=== PATIENT | male | born 1960 | race African-American/Black ===

== ENCOUNTER 2016-12-18 13:05 | Inpatient (IN) | payer OTHER ==
[2016-12-18 13:42] VITALS: BMI 30.5
--- NOTE | 2016-12-18 17:22 | HP ---
COWS - Scale Resting Pulse: 1= [place] 81-100 Sweatin=Flushed/Facial Moisture Restless Observation: 1= Difficult to Sit Still Pupil Size: 1= Pupils >than Normal Bone or Joint Aches: 2= Severe Diffuse Aches Runny Nose/ Eye Tearin= Nasal Congestion GI Upset > 30mins: 2= Nausea/Diarrhea Tremor Observation: 2= Slight Tremor Visible Yawning Observation: 4= Several Times/Minute Anxiety or Irritability: 2=Irritable/Anxious Goose Flesh Skin: 3=Piloerection COWS Score: 21 CIWA Score - CIWA Score Nausea/Vomitin Muscle Tremors: 3 Anxiety: 2 Agitation: 2 Paroxysmal Sweats: 3 Orientation: 0-Oriented Tacttile Disturbances: 1-Very Mild Itch/Numbness Auditory Disturbances: 0-None Visual Disturbances: 1-Very Mild Sensitivity Headache: 2-Mild CIWA-Ar Total Score: 16 [facility] - HPI Chief Complaint: I need he;p to stop doing heroin and alcohol Allergies/Adverse Reactions: Allergies Allergy/AdvReac Type Severity Reaction Status Date / Time No Known Allergies Allergy Verified 11/17/15 22:55 History of Present Illness: 56 y/o man with longstanding h/o alcohol and heroin dependence presents for detox Exam Limitations: No Limitations - Ebola screening Have you traveled outside of the country in the last 21 days: No Have you had contact with anyone from an Ebola affected area: No Have you been sick,other than usual withdrawal symptoms: No Do you have a fever: No - Review of Systems Constitutional: Chills, Loss of Appetite EENT: reports: Nose Congestion Respiratory: reports: Cough Cardiac: reports: No Symptoms Reported GI: reports: Nausea, Poor Appetite, Poor Fluid Intake, Abdominal cramping : reports: No Symptoms Reported Musculoskeletal: reports: Back Pain, Muscle Pain Integumentary: reports: No Symptoms Reported Neuro: reports: Headache, Numbness Endocrine: reports: No Symptoms Reported Hematology: reports: No Symptoms Reported Psychiatric: reports: Anxious, Depressed Other Systems: Reviewed and Negative Patient History - Patient Medical History Hx Anemia: No Hx Asthma: No Hx Chronic Obstructive Pulmonary Disease (COPD): No Hx Cancer: No Hx Cardiac Disorders: No Hx Congestive Heart Failure: No Hx Hypertension: No Hx Hypercholesterolemia: No Hx Pacemaker: No HX Cerebrovascular Accident: No Hx Seizures: No Hx Dementia: No Hx Diabetes: Yes Hx Gastrointestinal Disorders: No Hx Liver Disease: No Hx Genitourinary Disorders: No Hx Sexually Transmitted Disorders: No Hx Renal Disease (ESRD): No Hx Thyroid Disease: No Hx Human Immunodeficiency Virus (HIV): No Hx Hepatitis C: No Hx Depression: Yes Hx Suicide Attempt: No (remote hx) Hx Bipolar Disorder: No Hx Schizophrenia: Yes - Patient Surgical History Past Surgical History: Yes Hx Neurologic Surgery: No Hx Cataract Extraction: No Hx Cardiac Surgery: No Hx Lung Surgery: No Hx Breast Surgery: No Hx Breast Biopsy: No Hx Abdominal Surgery: Yes (hernia repair ) Hx Appendectomy: No Hx Cholecystectomy: No Hx Genitourinary Surgery: No Hx Section: No Hx Orthopedic Surgery: No Anesthesia Reaction: No - PPD History Previous Implant?: Yes Documented Results: Negative w/proof Implanted On Prior R Admission?: Yes Date: 11/20/15 PPD to be Administered?: Yes - Smoking Cessation Smoking history: Current every day smoker Have you smoked in the past 12 months: Yes Aproximately how many cigarettes per day: 40 Hx Chewing Tobacco Use: No 'Breaking Loose' booklet given: 12/18/16 - Substance & Tx. History Hx Alcohol Use: Yes (rum, beer) Hx Substance Use: Yes Substance Use Type: Alcohol - Substances Abused Alcohol Route: Oral Frequency: Daily Amount used: 2 pints Age of first use: 3 Date of Last Use: 12/18/16 Heroin Route: Inhalation Frequency: Daily Amount used: 2 bundles Age of first use: 20 Date of Last Use: 12/18/16 Family Disease History - Family Disease History Family Disease History: Diabetes: Mother (ovarian), CA: Mother Admission Physical Exam S - Vital Signs Vital Signs: Vital Signs - 24 hr 12/18/16 13:38 Temperature 96.2 F L Pulse Rate 97 H Respiratory 20 Rate Blood Pressure 109/56 - Physical General Appearance: Yes: Tremorous, Sweating, Anxious HEENTM: Yes: Normal Voice, NATASHA, Nasal Congestion, Rhinorrhea Respiratory: Yes: Chest Non-Tender, Lungs Clear, No Respiratory Distress, No Accessory Muscle Use, Other Neck: Yes: No masses,lesions,Nodules, Supple Breast: Yes: Breast Exam Deferred Cardiology: Yes: Regular Rhythm, Regular Rate, S1, S2 Abdominal: Yes: Within Normal Limits Genitourinary: Yes: Within Normal Limits Back: Yes: Normal Inspection Musculoskeletal: Yes: Back pain, Muscle Pain Extremities: Yes: Non-Tender, Tremors Neurological: Yes: police cadet II-XII NML intact, Alert, Normal Response Integumentary: Yes: Clammy Lymphatic: Yes: Within Normal Limits - Diagnostic (1) Alcohol dependence with uncomplicated withdrawal Current Visit: Yes Status: Acute (2) Nicotine dependence Current Visit: Yes Status: Acute Qualifiers: Nicotine product type: cigarettes Substance use status: uncomplicated Qualified Code(s): F17.210 - Nicotine dependence, cigarettes, uncomplicated (3) Opioid dependence Current Visit: Yes Status: Acute (4) Diabetes 1.5, managed as type 2 Current Visit: Yes Status: Chronic Cleared for Admission [facility] - Detox or Rehab [facility] Level of Care: Medically Managed Detox Regimen/Protocol: Methadone/Librium [facility] Breath Alcohol Content Breath Alcohol Content: 0.131 Urine Drug Screen - Results Drug Screen Negative: No Urine Drug Screen Results: OPI-Opiates, BZO-Benzodiazepines
[2016-12-18] MEDS ORDERED: MENTHOL/PHENOL 1 EACH UD MM PRN (17:29)
[2016-12-18] MEDS ORDERED: MAGNESIUM HYDROX 2400MG/30ML ORAL SUSPENSION 30 ML CUP PO PRN (17:29)
[2016-12-18] MEDS ORDERED: LOPERAMIDE HCL 2 MG CAPSULE PO PRN (17:29)
[2016-12-18] MEDS ORDERED: P-EPHED 60MG/TRIPROLIDI 2.5MG TABLET PO PRN (17:29)
[2016-12-18] MEDS ORDERED: guaiFENesin/D-METHORPHAN HB 10 ML UNIT-DOSE CUPS PO PRN (17:29)
[2016-12-18] MEDS ORDERED: METHADONE HCL 10 MG TABLET (FOR DETOX USE ONLY) PO ONE ×2 (17:29→23:00)
[2016-12-18] MEDS ORDERED: chlordiazePOXIDE HCL 25 MG CAPSULE PO ONE (17:29)
[2016-12-18] MEDS ORDERED: NICOTINE POLACRILEX 2 MG GUM BUC PRN (17:29)
[2016-12-18] MEDS ORDERED: MAGNESIUM CITRATE 300 ML BOTTLE PO PRN (17:29)
[2016-12-18] MEDS ORDERED: METHADONE HCL 10 MG TABLET (FOR DETOX USE ONLY) ONE (19:40)
[2016-12-18] MEDS: NICOTINE 21 MG/24 HOURS TOPICAL PATCH TD SCH (19:45)
[2016-12-18] MEDS: chlordiazePOXIDE HCL 25 MG CAPSULE PO PRN (19:45)
[2016-12-18] MEDS: diphenhydrAMINE HCL 50 MG CAPSULE PO PRN (22:24)
[2016-12-18] MEDS: THIAMINE HCL 100 MG TABLET (FP) PO SCH (22:24)
[2016-12-18] MEDS: chlordiazePOXIDE HCL 25 MG CAPSULE PO SCH (22:24)
[2016-12-18] MEDS: IBUPROFEN 400 MG TABLET (FP) PO PRN (22:27)
[2016-12-19] MEDS: chlordiazePOXIDE HCL 25 MG CAPSULE PO SCH ×4 (05:59→22:34)
[2016-12-19] MEDS: IBUPROFEN 400 MG TABLET (FP) PO PRN ×2 (06:05→17:05)
--- NOTE | 2016-12-19 09:36 | PN ---
[facility] CIWA - CIWA Score Nausea/Vomitin-Mild Nausea/No Vomiting Muscle Tremors: 4-Moderate,w/Arms Extend Anxiety: 4-Mod. Anxious/Guarded Agitation: 4-Moderately Restless Paroxysmal Sweats: 3 Orientation: 0-Oriented Tacttile Disturbances: 2-Mild Itch/Numbness/Burn Auditory Disturbances: 0-None Visual Disturbances: 0-None Headache: 0-None Present CIWA-Ar Total Score: 18 [facility] COWS - Scale Resting Pulse: 0= [place] 80 or Below Sweatin=Flushed/Facial Moisture Restless Observation: 1= Difficult to Sit Still Pupil Size: 0= Normal to Room Light Bone or Joint Aches: 2= Severe Diffuse Aches Runny Nose/ Eye Tearin= Runny Nose/Eyes GI Upset > 30mins: 2= Nausea/Diarrhea Tremor Observation of Outstretched Hands: 2= Slight Tremor Visible Yawning Observation: 1= 1-2x During Session Anxiety or Irritability: 2=Irritable/Anxious Goose Flesh Skin: 0=Smooth Skin COWS Score: 14 [facility] Progress Note (SOAP) Subjective: Anxiety,sweating,tremors,severe back pain,legs/joints pain,interrupted sleep. Objective: 12/19/16 09:35 Vital Signs - 8 hr 12/19/16 12/19/16 03:58 06:00 Temperature 97.7 F Pulse Rate 78 Respiratory 18 20 Rate Blood Pressure 101/57 Assessment: 12/19/16 09:35 Withdrawal sx. Plan: Continue detox
[2016-12-19] MEDS ORDERED: METHADONE HCL 10 MG TABLET (FOR DETOX USE ONLY) PO SCH (10:00)
[2016-12-19] MEDS: PRENATAL VITAMINS W/ FOLIC ACID TABLET (FP) PO SCH (10:12)
[2016-12-19] MEDS: NICOTINE 21 MG/24 HOURS TOPICAL PATCH TD SCH (10:13)
[2016-12-19 11:01] LABS: URINE APPEARANCE SLCLOUDY; URINE BILIRUBIN NEGATIVE (NEGATIVE); URINE BLOOD NEGATIVE (NEGATIVE); URINE COLOR LTYELLOW; URINE GLUCOSE (UA) NEGATIVE (NEGATIVE); URINE KETONE NEGATIVE (NEGATIVE); URINE LEUK ESTERASE NEGATIVE (NEGATIVE); URINE NITRITE NEGATIVE (NEGATIVE); URINE UROBILINOGEN NEGATIVE E.U./dl (0.2-1.0)
[2016-12-19 11:02] LABS: URINE PROTEIN 1+ (NEGATIVE)
[2016-12-19 11:07] LABS: URIC ACID CRYSTALS RARE /hpf (NONE SEEN); URINE HYALINE CAST 4 /lpf; URINE MUCUS RARE; URINE RBC <1 /hpf (0-3); URINE WBC 1 /hpf (3-5)
[2016-12-19 11:07] LABS: MCH 35.1 pg (25.7-33.7); MCHC 33.7 g/dl (32.0-35.9); MEAN CELL VOLUME 104.4 fl (80-96); MEAN PLT VOLUME 9.9 fl (7.5-11.1); PLATELET COUNT 142 K/MM3 (134-434); RDW 16.3 % (11.9-15.9); WHITE BLOOD COUNT 6.2 K/mm3 (4.0-10.0)
[2016-12-19 11:12] LABS: ALBUMIN 3.5 g/dl (3.4-5.0); ANION GAP 7 (8-16); CALCIUM 8.1 mg/dL (8.5-10.1); CO2 26 mmol/L (21-32); GLUCOSE,RANDOM 118 mg/dL (74-106)
[2016-12-19 11:15] LABS: ALK PHOS 104 U/L (45-117); COCKROFT - GAULT 106.93; SGOT/AST 15 U/L (15-37); SGPT/ALT 20 U/L (12-78); TOT PROT 7.5 g/dl (6.4-8.2)
[2016-12-19] MEDS ORDERED: IBUPROFEN 400 MG TABLET (FP) PO ONE (11:30)
[2016-12-19] MEDS ORDERED: CYCLOBENZAPRINE HCL 10 MG TABLET (FP) PO ONE (11:30)
[2016-12-19] MEDS: hydrOXYzine PAMOATE 50 MG CAPSULE (FP) PO PRN (11:52)
[2016-12-19] MEDS: TRIMETHOBENZAMIDE HCL 200MG/2ML INJ IM PRN ×2 (11:52→17:37)
[2016-12-19] MEDS: chlordiazePOXIDE HCL 25 MG CAPSULE PO PRN ×2 (13:12→19:52)
[2016-12-19] MEDS: CYCLOBENZAPRINE HCL 10 MG TABLET (FP) PO SCH ×2 (13:12→22:34)
[2016-12-19] MEDS: LIDOCAINE 5% TOPICAL PATCH TP SCH (15:03)
[2016-12-19] MEDS: ACETAMINOPHEN 325 MG TABLET (FP) PO PRN (18:56)
[2016-12-19] MEDS: MAG HYDROX/AL HYDROX/SIMETH 30 ML UNIT-DOSE CUP PO PRN (19:51)
[2016-12-19] MEDS: diphenhydrAMINE HCL 50 MG CAPSULE PO PRN (22:34)
[2016-12-19] MEDS: THIAMINE HCL 100 MG TABLET (FP) PO SCH (22:35)
[2016-12-20] MEDS: diphenhydrAMINE HCL 50 MG CAPSULE PO PRN (00:23)
[2016-12-20] MEDS: chlordiazePOXIDE HCL 25 MG CAPSULE PO PRN (01:41)
[2016-12-20] MEDS: IBUPROFEN 400 MG TABLET (FP) PO PRN ×2 (01:41→22:43)
[2016-12-20] MEDS: MAG HYDROX/AL HYDROX/SIMETH 30 ML UNIT-DOSE CUP PO PRN (04:14)
[2016-12-20] MEDS: TRIMETHOBENZAMIDE HCL 200MG/2ML INJ IM PRN (04:15)
[2016-12-20] MEDS: CYCLOBENZAPRINE HCL 10 MG TABLET (FP) PO SCH ×3 (06:04→22:43)
[2016-12-20] MEDS: chlordiazePOXIDE HCL 25 MG CAPSULE PO SCH ×3 (06:05→17:45)
--- NOTE | 2016-12-20 10:04 | CONSULT ---
[facility] Psychiatric Consult - Data Date of interview: 12/20/16 Admission source: [facility] Identifying data: This is 56 years old male with Schizophrenia, with history of [id number] hospitalizations intoxicated with: Alcohol, Opioids, Nicotine Substance Abuse History: Smoking history: Current every day smoker. Have you smoked in the past 12 months: Yes. Aproximately how many cigarettes per day: 40. Hx Chewing Tobacco Use: No. 'Breaking Loose' booklet given: 12/18/16. - Substance & Tx. History. Hx Alcohol Use: Yes (rum, beer). Hx Substance Use: Yes. Substance Use Type: Alcohol. - Substances Abused. Alcohol. Route: Oral. Frequency: Daily. Amount used: 2 pints. Age of first use: 3. Date of Last Use: 12/18/16. Heroin. Route: Inhalation. Frequency: Daily. Amount used: 2 bundles. Age of first use: 20. Date of Last Use: 12/18/16 Medical History: DM-2 Psychiatric History: Patient is poor historyanm sedated at is time, reports history of schizophrenia, reports most recent [facility] on few years ago at [facility]. Patient reports taking prior to admission: Trilafon 4mg po bid. Seroquel 200mg po bid. TRILAFON 4MG PO BID. SEROQUEL 100MG PO BID Physical/Sexual Abuse/Trauma History: Denies Additional Comment: TRILAFON 4MG PO BID. SEROQUEL 100MG PO BID. Cogentin 1mg poqd Mental Status Exam - Mental Status Exam Alert and Oriented to: Person Cognitive Function: Fair Patient Appearance: Unkempt Mood: Sad Affect: Flat Patient Behavior: Sedated Speech Pattern: Delayed, Slurred Voice Loudness: Mildly Soft/Quiet Thought Process: Circumstantial, Tangential Thought Disorder: Being Controlled Hallucinations: Denies Suicidal Ideation: Denies Homicidal Ideation: Denies Insight/Judgement: Fair Sleep: Difficulty falling asleep Appetite: Weight gain Muscle strength/Tone: Mild Hypotonicity Gait/Station: Shuffling Additional Comments: TRILAFON 4MG PO BID. SEROQUEL 100MG PO BID. Cogentin 1mg poqd Psychiatric Findings - Problem List ([place] 1, 2,3) (1) Alcohol dependence with uncomplicated withdrawal Current Visit: Yes Status: Acute (2) Nicotine dependence Current Visit: Yes Status: Acute Qualifiers: Nicotine product type: cigarettes Substance use status: uncomplicated Qualified Code(s): F17.210 - Nicotine dependence, cigarettes, uncomplicated (3) Opioid dependence Current Visit: Yes Status: Acute (4) Alcohol dependence Current Visit: No Status: Active (5) Paranoid schizophrenia Current Visit: No Status: Chronic - Initial Treatment Plan Initial Treatment Plan: TRILAFON 4MG PO BID. SEROQUEL 100MG PO BID. Cogentin 1mg poqd
[2016-12-20] MEDS: PERPHENAZINE 4 MG TABLET PO SCH ×2 (10:25→22:43)
[2016-12-20] MEDS: PRENATAL VITAMINS W/ FOLIC ACID TABLET (FP) PO SCH (10:25)
[2016-12-20] MEDS: METHADONE HCL 5 MG TABLET (FOR DETOX USE ONLY) PO SCH (10:25)
[2016-12-20] MEDS: METHYL SALICYLATE/MENTHOL OINT 30 GM TUBE TP SCH ×2 (10:26→22:42)
[2016-12-20] MEDS: NICOTINE 21 MG/24 HOURS TOPICAL PATCH TD SCH (10:26)
[2016-12-20] MEDS: LIDOCAINE 5% TOPICAL PATCH TP SCH (10:27)
--- NOTE | 2016-12-20 10:42 | PN ---
[facility] CIWA - CIWA Score Nausea/Vomitin-No Nausea/No Vomiting Muscle Tremors: 4-Moderate,w/Arms Extend Anxiety: 4-Mod. Anxious/Guarded Agitation: 4-Moderately Restless Paroxysmal Sweats: 3 Orientation: 0-Oriented Tacttile Disturbances: 0-None Auditory Disturbances: 0-None Visual Disturbances: 0-None Headache: 0-None Present CIWA-Ar Total Score: 15 S COWS - Scale Resting Pulse: 2= [place] 101-120 Sweatin=Flushed/Facial Moisture Restless Observation: 0= Sits Still Pupil Size: 0= Normal to Room Light Bone or Joint Aches: 4=Acute Joint/Muscle Pain Runny Nose/ Eye Tearin= None GI Upset > 30mins: 0= None Tremor Observation of Outstretched Hands: 2= Slight Tremor Visible Yawning Observation: 0= None Anxiety or Irritability: 2=Irritable/Anxious Goose Flesh Skin: 0=Smooth Skin COWS Score: 12 S Progress Note (SOAP) Subjective: body aches sweats irritable mild shakes interrupted sleep agitation Objective: 12/20/16 10:41 Vital Signs Temperature 97.7 F 12/20/16 09:23 Pulse Rate 82 12/20/16 09:23 Respiratory Rate 16 12/20/16 09:23 Blood Pressure 151/98 12/20/16 09:23 O2 Sat by Pulse Oximetry (%) Laboratory Tests 12/19/16 12/19/16 12/19/16 07:00 07:00 07:00 WBC RBC Hgb Hct MCV MCHC RDW Plt Count MPV Sodium 138 Potassium 4.4 Chloride 105 Carbon Dioxide 26 Anion Gap 7 L BUN 14 D Creatinine 1.0 D Creat Clearance w eGFR > 60 POC Glucometer Random Glucose 118 H Calcium 8.1 L Total Bilirubin 1.0 D AST 15 ALT 20 D Alkaline Phosphatase 104 Total Protein 7.5 Albumin 3.5 Urine Color Ltyellow Urine Appearance Slcloudy Urine pH 5.0 Ur Specific [place] 1.012 Urine Protein 1+ H Urine Glucose (UA) Negative Urine Ketones Negative Urine Blood Negative Urine Nitrite Negative Urine Bilirubin Negative Urine Urobilinogen Negative Ur Leukocyte Esterase Negative Urine RBC <1 Urine WBC 1 Ur Epithelial Cells Rare Uric Acid Crystals Rare Hyaline Casts 4 Urine Mucus Rare RPR Titer Nonreactive 12/19/16 12/20/16 07:19 06:03 WBC 6.2 RBC 4.25 Hgb 14.9 D Hct 44.3 D MCV 104.4 H MCHC 33.7 RDW 16.3 H Plt Count 142 MPV 9.9 Sodium Potassium Chloride Carbon Dioxide Anion Gap BUN Creatinine Creat Clearance w eGFR POC Glucometer 147 Random Glucose Calcium Total Bilirubin AST ALT Alkaline Phosphatase Total Protein Albumin Urine Color Urine Appearance Urine pH Ur Specific [place] Urine Protein Urine Glucose (UA) Urine Ketones Urine Blood Urine Nitrite Urine Bilirubin Urine Urobilinogen Ur Leukocyte Esterase Urine RBC Urine WBC Ur Epithelial Cells Uric Acid Crystals Hyaline Casts Urine Mucus RPR Titer awake/alert lying in bed no acute distress Assessment: 12/20/16 10:41 withdrawal sx Plan: continue detox increase fluids lidocaine patch analgesic balm continue motrin as ordered
[2016-12-20] MEDS: BENZTROPINE MESYLATE 1 MG TABLET (FP) PO SCH (17:44)
[2016-12-20] MEDS ORDERED: QUEtiapine FUMARATE 100 MG TABLET (FP) PO SCH (22:00)
[2016-12-20] MEDS: THIAMINE HCL 100 MG TABLET (FP) PO SCH (22:42)
[2016-12-20] MEDS: QUEtiapine FUMARATE 100 MG TABLET (FP) PO SCH (22:43)
[2016-12-20] MEDS: chlordiazePOXIDE 5 MG CAPSULE PO SCH (22:43)
[2016-12-21] MEDS: chlordiazePOXIDE 5 MG CAPSULE PO SCH ×3 (05:13→17:55)
[2016-12-21] MEDS: CYCLOBENZAPRINE HCL 10 MG TABLET (FP) PO SCH ×4 (05:13→23:43)
[2016-12-21] MEDS: ACETAMINOPHEN 325 MG TABLET (FP) PO PRN (05:14)
[2016-12-21] MEDS: TRIMETHOBENZAMIDE HCL 200MG/2ML INJ IM PRN (09:08)
--- NOTE | 2016-12-21 09:17 | PN ---
[facility] CIWA - CIWA Score Nausea/Vomitin-Int. Nausea w/Dry Heave Muscle Tremors: 2 Anxiety: 2 Agitation: 2 Paroxysmal Sweats: 3 Orientation: 0-Oriented Tacttile Disturbances: 2-Mild Itch/Numbness/Burn Auditory Disturbances: 0-None Visual Disturbances: 0-None Headache: 0-None Present CIWA-Ar Total Score: 15 S COWS - Scale Resting Pulse: 2= [place] 101-120 Sweatin= Chills/Flushing Restless Observation: 1= Difficult to Sit Still Pupil Size: 1= Pupils >than Normal Bone or Joint Aches: 2= Severe Diffuse Aches Runny Nose/ Eye Tearin= Nasal Congestion GI Upset > 30mins: 1= Stomach Cramp Tremor Observation of Outstretched Hands: 1= Tremor [place], Not Seen Yawning Observation: 0= None Anxiety or Irritability: 1=Feels Anxious/Irritable Goose Flesh Skin: 0=Smooth Skin COWS Score: 11 [facility] Progress Note (SOAP) Subjective: interrupted sleep, sweats, nausea ,lbp Objective: 12/21/16 09:15 Vital Signs Temperature 96.6 F L 12/21/16 07:01 Pulse Rate 106 H 12/21/16 07:01 Respiratory Rate 20 12/21/16 07:01 Blood Pressure 133/83 12/21/16 07:01 O2 Sat by Pulse Oximetry (%) Laboratory Tests 12/19/16 12/19/16 12/19/16 07:00 07:00 07:00 WBC RBC Hgb Hct MCV MCHC RDW Plt Count MPV Sodium 138 Potassium 4.4 Chloride 105 Carbon Dioxide 26 Anion Gap 7 L BUN 14 D Creatinine 1.0 D Creat Clearance w eGFR > 60 POC Glucometer Random Glucose 118 H Calcium 8.1 L Total Bilirubin 1.0 D AST 15 ALT 20 D Alkaline Phosphatase 104 Total Protein 7.5 Albumin 3.5 Urine Color Ltyellow Urine Appearance Slcloudy Urine pH 5.0 Ur Specific [place] 1.012 Urine Protein 1+ H Urine Glucose (UA) Negative Urine Ketones Negative Urine Blood Negative Urine Nitrite Negative Urine Bilirubin Negative Urine Urobilinogen Negative Ur Leukocyte Esterase Negative Urine RBC <1 Urine WBC 1 Ur Epithelial Cells Rare Uric Acid Crystals Rare Hyaline Casts 4 Urine Mucus Rare RPR Titer Nonreactive 12/19/16 12/20/16 07:19 06:03 WBC 6.2 RBC 4.25 Hgb 14.9 D Hct 44.3 D MCV 104.4 H MCHC 33.7 RDW 16.3 H Plt Count 142 MPV 9.9 Sodium Potassium Chloride Carbon Dioxide Anion Gap BUN Creatinine Creat Clearance w eGFR POC Glucometer 147 Random Glucose Calcium Total Bilirubin AST ALT Alkaline Phosphatase Total Protein Albumin Urine Color Urine Appearance Urine pH Ur Specific [place] Urine Protein Urine Glucose (UA) Urine Ketones Urine Blood Urine Nitrite Urine Bilirubin Urine Urobilinogen Ur Leukocyte Esterase Urine RBC Urine WBC Ur Epithelial Cells Uric Acid Crystals Hyaline Casts Urine Mucus RPR Titer pt aox3 in nad ambulating Assessment: 12/21/16 09:16 withdrawal sx's nausea Plan: cont. detox increase fluids tigan im clonidine 0.1mg bid
[2016-12-21] MEDS: LIDOCAINE 5% TOPICAL PATCH TP SCH (10:10)
[2016-12-21] MEDS: METHADONE HCL 5 MG TABLET (FOR DETOX USE ONLY) PO SCH (10:32)
[2016-12-21] MEDS: PRENATAL VITAMINS W/ FOLIC ACID TABLET (FP) PO SCH (10:32)
[2016-12-21] MEDS: NICOTINE 21 MG/24 HOURS TOPICAL PATCH TD SCH (10:33)
[2016-12-21] MEDS: QUEtiapine FUMARATE 100 MG TABLET (FP) PO SCH ×2 (10:33→23:43)
[2016-12-21] MEDS: BENZTROPINE MESYLATE 1 MG TABLET (FP) PO SCH (10:33)
[2016-12-21] MEDS: cloNIDine HCL 0.1 MG TABLET PO SCH ×2 (10:33→23:43)
[2016-12-21] MEDS: PERPHENAZINE 4 MG TABLET PO SCH ×2 (10:33→23:44)
[2016-12-21] MEDS: IBUPROFEN 400 MG TABLET (FP) PO PRN (10:34)
[2016-12-21] MEDS: METHYL SALICYLATE/MENTHOL OINT 30 GM TUBE TP SCH ×2 (10:38→23:42)
--- NOTE | 2016-12-21 21:58 | PN ---
[facility] Progress Note Note: patient trip his own cane, fell on floor, hit head on ground observed patient sitting on edge of bed, vital signs in progress anxiousness, breath heavily, alert, PERRLA EOMI, cervical spine full range of motion, denies pain, able to standing up and sitting independently
[2016-12-21] MEDS: chlordiazePOXIDE HCL 10 MG CAPSULE PO SCH (23:43)
[2016-12-21] MEDS: THIAMINE HCL 100 MG TABLET (FP) PO SCH (23:44)
[2016-12-22] MEDS: hydrOXYzine PAMOATE 50 MG CAPSULE (FP) PO PRN (01:39)
[2016-12-22] MEDS: IBUPROFEN 400 MG TABLET (FP) PO PRN (01:40)
[2016-12-22] MEDS: MAG HYDROX/AL HYDROX/SIMETH 30 ML UNIT-DOSE CUP PO PRN (01:41)
[2016-12-22 03:44] VITALS: BP 99/73; PULSE 113; TEMP 97.9
--- NOTE | 2016-12-22 04:09 | PN ---
[facility] Progress Note Note: PT.FELL FOR THE SECOND TIME IN 6 HOURS. HE STATED HE GOT UP FROM HIS BED USING HIS CANE. HE LOST HIS BALANCE AND HIT HIS HEAD AGAINST THE GARBAGE; FALL WAS UNWITNESSED. HE ALSO STATED HE BLACKED OUT PRIOR TO FALLING. HE WAS ASSESSED WHILE ANXIOUSLY SITTING IN BED. HE DENIES PAIN, ALERT TO TO SELF AND LOCATION. CLIENT REFERRED TO ER FOR FURTHER EVALUATION. REPORT GIVEN JASMEET BACA. VS AT 3:43AM: BP: 99/73, P: 113, R: 18, T:97.9
[2016-12-22] MEDS: CYCLOBENZAPRINE HCL 10 MG TABLET (FP) PO SCH (05:06)
[2016-12-22] MEDS: chlordiazePOXIDE HCL 10 MG CAPSULE PO SCH (05:06)
--- NOTE | 2016-12-22 08:29 | EKG ---
Test Reason : Blood Pressure : / mmHG Vent. Rate : 081 BPM Atrial Rate : 081 BPM P-R Int : 164 ms QRS Dur : 092 ms QT Int : 366 ms P-R-T Axes : 054 043 047 degrees QTc Int : 425 ms NORMAL SINUS RHYTHM MINIMAL VOLTAGE CRITERIA FOR LVH, MAY BE NORMAL VARIANT BORDERLINE ECG NO PREVIOUS ECGS AVAILABLE Confirmed by DEVANG ANDERSON MD ([id number]) on 12/22/2016 8:29:02 AM Referred By: Confirmed By:DEVANG ANDERSON MD
[2016-12-22] MEDS ORDERED: METHADONE HCL 10 MG TABLET (FOR DETOX USE ONLY) PO SCH (10:00)
--- NOTE | 2016-12-22 10:14 | DS ---
[facility] Detox Discharge Summary Admission Date: 12/18/16 Discharge Date: 12/22/16 - History Present History: Alcohol Dependence, Opioid Dependence - Physical Exam Results Vital Signs: Vital Signs Temperature 97.9 F 12/22/16 04:34 Pulse Rate 113 H 12/22/16 04:34 Respiratory Rate 18 12/22/16 04:34 Blood Pressure 99/73 12/22/16 04:34 O2 Sat by Pulse Oximetry (%) - Treatment Hospital Course: Detox Protocol Followed, Detoxed Safely Patient has Accepted a Rehab Referral to: pt transfered to ED for further eval. - Medication Discharge Medications: Ambulatory Orders Benztropine Mesylate [Cogentin -] 1 mg PO DAILY #30 tablet 12/20/16 Perphenazine [Trilafon -] 4 mg PO BID #60 tablet 12/20/16 Quetiapine Fumarate [Seroquel] 100 mg PO BID #60 tablet 12/20/16 - Diagnosis (1) Alcohol dependence with uncomplicated withdrawal Current Visit: Yes Status: Chronic (2) Nicotine dependence Current Visit: Yes Status: Chronic Qualifiers: Nicotine product type: cigarettes Substance use status: uncomplicated Qualified Code(s): F17.210 - Nicotine dependence, cigarettes, uncomplicated (3) Opioid dependence Current Visit: Yes Status: Chronic (4) Diabetes 1.5, managed as type 2 Current Visit: Yes Status: Chronic (5) Acute renal failure (ARF) Current Visit: Yes Status: Acute Qualifiers: Acute renal failure type: unspecified Qualified Code(s): N17.9 - Acute kidney failure, unspecified - AMA Did Patient Leave Against Medical Advice: No (pt admitted to [facility] /surg )
[2016-12-22] MEDS ORDERED: SODIUM CHLORIDE 1,000 ML IV SCH (10:15)
--- NOTE | 2016-12-22 10:24 | HP ---
CHIEF COMPLAINT: PCP: HISTORY OF PRESENT ILLNESS: ER course was notable for: (1) (2) (3) Recent Travel: PAST MEDICAL HISTORY: PAST SURGICAL HISTORY: Social History: Smoking: Alcohol: Drugs: Family History: Allergies No Known Allergies Allergy (Verified 12/22/16 05:16) HOME MEDICATIONS: Home Medications Medication Instructions Recorded Benztropine Mesylate [Cogentin -] 1 mg PO DAILY #30 tablet 12/20/16 Perphenazine [Trilafon -] 4 mg PO BID #60 tablet 12/20/16 Quetiapine Fumarate [Seroquel] 100 mg PO BID #60 tablet 12/20/16 REVIEW OF SYSTEMS CONSTITUTIONAL: Absent: fever, chills, diaphoresis, generalized weakness, malaise, loss of appetite, weight change HEENT: Absent: rhinorrhea, nasal congestion, throat pain, throat swelling, difficulty swallowing, mouth swelling, ear pain, eye pain, visual changes CARDIOVASCULAR: Absent: chest pain, syncope, palpitations, irregular heart rate, lightheadedness , peripheral edema RESPIRATORY: Absent: cough, shortness of breath, dyspnea with exertion, orthopnea, wheezing, stridor, hemoptysis GASTROINTESTINAL: Absent: abdominal pain, abdominal distension, nausea, vomiting, diarrhea, constipation, melena, hematochezia GENITOURINARY: Absent: dysuria, frequency, urgency, hesitancy, hematuria, flank pain, genital pain MUSCULOSKELETAL: Absent: myalgia, arthralgia, joint swelling, back pain, neck pain SKIN: Absent: rash, itching, pallor HEMATOLOGIC/IMMUNOLOGIC: Absent: easy bleeding, easy bruising, lymphadenopathy, frequent infections ENDOCRINE: Absent: unexplained weight gain, unexplained weight loss, heat intolerance, cold intolerance NEUROLOGIC: Absent: headache, focal weakness or paresthesias, dizziness, unsteady gait, seizure, mental status changes, bladder or bowel incontinence PSYCHIATRIC: Absent: anxiety, depression, suicidal or homicidal ideation, hallucinations. PHYSICAL EXAMINATION Vital Signs - 24 hr 12/21/16 12/21/16 12/21/16 13:28 19:42 21:45 Temperature 98.2 F 97 F L 96.8 F L Pulse Rate 104 H 110 H 145 H Respiratory 20 20 20 Rate Blood Pressure 121/86 97/58 157/78 12/21/16 12/22/16 12/22/16 22:00 00:30 01:45 Temperature 96.3 F L 96.4 F L Pulse Rate 138 H 124 H Respiratory 22 18 20 Rate Blood Pressure 131/64 112/65 12/22/16 12/22/16 03:43 04:34 Temperature 97.9 F 97.9 F Pulse Rate 113 H 113 H Respiratory 18 18 Rate Blood Pressure 99/73 99/73 GENERAL: Awake, alert, and fully oriented, in no acute distress. HEAD: Normal with no signs of trauma. EYES: Pupils equal, round and reactive to light, extraocular movements intact, sclera anicteric, conjunctiva clear. No lid lag. EARS, NOSE, THROAT: Ears normal, nares patent, oropharynx clear without exudates. Moist mucous membranes. NECK: Normal range of motion, supple without lymphadenopathy, JVD, or masses. LUNGS: Breath sounds equal, clear to auscultation bilaterally. No wheezes, and no crackles. No accessory muscle use. HEART: Regular rate and rhythm, normal S1 and S2 without murmur, rub or gallop. ABDOMEN: Soft, nontender, not distended, normoactive bowel sounds, no guarding, no rebound, no masses. No hepatomegaly or splenomegaly. MUSCULOSKELETAL: Normal range of motion at all joints. No bony deformities or tenderness. No CVA tenderness. UPPER EXTREMITIES: 2+ pulses, warm, well-perfused. No cyanosis. No clubbing. No peripheral edema. LOWER EXTREMITIES: 2+ pulses, warm, well-perfused. No calf tenderness. No peripheral edema. NEUROLOGICAL: Cranial nerves II-XII intact. Normal speech. Normal gait. PSYCHIATRIC: Cooperative. Good eye contact. Appropriate mood and affect. SKIN: Warm, dry, normal turgor, no rashes or lesions noted, normal capillary refill. ASSESSMENT/PLAN: Visit type - Emergency Visit Emergency Visit: Yes ED Registration Date: 12/18/16 Care time: The patient presented to the Emergency Department on the above date and was hospitalized for further evaluation of their emergent condition. - New Patient This patient is new to me today: Yes Date on this admission: 12/22/16 - Critical Care Critical Care patient: No
[2016-12-23] MEDS ORDERED: METHADONE HCL 5 MG TABLET (FOR DETOX USE ONLY) PO SCH (06:00)
[2016-12-23] MEDS ORDERED: METHADONE HCL 10 MG TABLET PO ONE (10:00)
== END 2016-12-22 11:49 | disposition short-term general hospital (02) | DRG 897 ==
LOC: YASAS 13:05 → Y6N 17:19
PROVIDERS: ADMIT Internal Medicine; ATTEND Internal Medicine
PROC: HZ2ZZZZ Detoxification Services for Substance Abuse Treatment (ICD-10-PCS; principal; 2016-12-18)
DX: F11.20 Opioid dependence, uncomplicated (principal); F10.230 Alcohol dependence with withdrawal, uncomplicated; F20.0 Paranoid schizophrenia; N17.9 Acute kidney failure, unspecified; F17.210 Nicotine dependence, cigarettes, uncomplicated; E13.9 Other specified diabetes mellitus without complications; R26.2 Difficulty in walking, not elsewhere classified; R11.0 Nausea; S09.90XA Unspecified injury of head, initial encounter; Z91.81 History of falling; W01.198A Fall on same level from slipping, tripping and stumbling with subsequent striking against other object, initial encounter; Y93.01 Activity, walking, marching and hiking; Y92.230 Patient room in hospital as the place of occurrence of the external cause
CPT/HCPCS: 36415; 80053; 81003; 81015; 85027; 86593; 93005; 93010

== ENCOUNTER 2016-12-21 22:46 | Emergency (ER) | payer OTHER ==
[2016-12-21 23:10] VITALS: BP 146/77; PULSE 117; TEMP 97.7; BMI 30.5
--- NOTE | 2016-12-21 23:13 | PDOC ---
History of Present Illness - General History Source: Patient, Old Records, Other Exam Limitations: No Limitations - History of Present Illness Initial Comments: 12/22/16 00:14 The patient is a 56 year old male with significant past medical history of etoh abuse and diabetes who presents to the ED BIBA from [facility] for s /p witnessed fall. As per ANIMAL SERVICES OFFICER, became concern because patient hit his head in the left frontotemporal region after fall. The fall was witnessed and no LOC. Patient complains of pain to the area. He was in Detox for etoh abuse. Patient denies chest pain, abdominal pain, nausea, or vomiting. Denies any changes in vision or dizziness. The patient denies fever, chills, cough, SOB, palpitations and diarrhea. Allergies: NKDA Social History: etoh abuse, current smoker (ppd), polysubstance use (heroin) Past Surgical History: hernia repair PCP: None reported <Carri Sanchez - Last Filed: 12/22/16 00:14> - General History Source: Patient <Alessandro Rowe - Last Filed: 12/22/16 00:24> - General Chief Complaint: Injury Stated Complaint: FALL HEAD INJURY Time Seen by Provider: 12/21/16 23:11 Past History <Carri Sanchez - Last Filed: 12/22/16 00:14> - Past Medical History Anemia: No Asthma: No Cancer: No Cardiac Disorders: No CVA: No COPD: No CHF: No Dementia: No Diabetes: Yes (Type II dx 2004) GI Disorders: No Disorders: No HTN: No Hypercholesterolemia: No Kidney Stones: No Liver Disease: No Suicide Attempt (Hx): No Seizures: No Thyroid Disease: No - Surgical History Abdominal Surgery: Yes (hernia repair ) Appendectomy: No Cardiac Surgery: No Cholecystectomy: No Lung Surgery: No Neurologic Surgery: No Orthopedic Surgery: No - Reproductive History Testicular Surgery: No - Psycho/Social/Smoking Cessation Hx Anxiety: No Suicidal Ideation: No Smoking History: Current every day smoker Have you smoked in the past 12 months: Yes Number of Cigarettes Smoked Daily: 20 Information on smoking cessation initiated: No 'Breaking Loose' booklet given: 12/18/16 Hx Alcohol Use: Yes Drug/Substance Use Hx: No (Heroin and alcohol) Substance Use Type: Alcohol, Heroin Hx Substance Use Treatment: No <Alessandro Rowe - Last Filed: 12/22/16 00:24> - Past Medical History Allergies/Adverse Reactions: Allergies Allergy/AdvReac Type Severity Reaction Status Date / Time No Known Allergies Allergy Verified 12/21/16 22:56 Home Medications: Ambulatory Orders Benztropine Mesylate [Cogentin -] 1 mg PO DAILY #30 tablet 12/20/16 Perphenazine [Trilafon -] 4 mg PO BID #60 tablet 12/20/16 Quetiapine Fumarate [Seroquel] 100 mg PO BID #60 tablet 12/20/16 Review of Systems - Review of Systems Able to Perform ROS?: Yes Comments:: 12/22/16 00:14 CONSTITUTIONAL: Absent: fever, no chills, no fatigue EYES: Absent: visual changes ENT: Absent: ear pain, no sore throat CARDIOVASCULAR: Absent: chest pain, no palpitations RESPIRATORY: Absent: cough, no SOB GI: Absent: abdominal pain, no nausea, no vomiting, no constipation, no diarrhea GENITOURINARY: Absent: dysuria, no frequency, no hematuria MUSCULOSKELETAL: Absent: back pain, no arthralgia, no myalgia SKIN: Absent: rash NEURO: +pain to the left frontotemporal region <Carri Sanchez - Last Filed: 12/22/16 00:14> *Physical Exam - Vital Signs Last Vital Signs Temp Pulse Resp BP Pulse Ox 97.7 F 117 H 20 146/77 97 12/21/16 23:07 12/21/16 23:07 12/21/16 23:07 12/21/16 23:07 12/21/16 23:07 - Physical Exam Comments: 12/22/16 00:15 GENERAL: Well-appearing, well-nourished. No apparent distress. HEENT: Normocephalic. PERRL, EOM intact. No racoon or marti sign. Small area of swelling to the left frontotemporal region. No hematoma. No ecchymosis. No bony deformity. CARDIOVASCULAR: Normal S1, S2. Regular rate and rhythm. PULMONARY: Clear to auscultation bilaterally. ABDOMEN: Soft, non-distended, non-tender. EXTREMITIES: Normal ROM in all four extremities. No gross deformities. SKIN: Warm, dry. No rash NEUROLOGICAL: No focal neurological deficits. <Carri Sanchez - Last Filed: 12/22/16 00:14> - Vital Signs Last Vital Signs Temp Pulse Resp BP Pulse Ox 97.7 F 117 H 20 146/77 97 12/21/16 23:07 12/21/16 23:07 12/21/16 23:07 12/21/16 23:07 12/21/16 23:07 <Alessandro Rowe - Last Filed: 12/22/16 00:24> ED Treatment Course - Medications Given in the ED: ED Medications Discontinued Medications Generic Name Dose Route Start Last Admin Trade Name Freq PRN Reason Stop Dose Admin Acetaminophen 975 mg 12/21/16 23:14 12/21/16 23:28 Tylenol - PO 12/21/16 23:15 975 mg ONCE ONE Administration <Carri Sanchez - Last Filed: 12/22/16 00:14> Medical Decision Making - Medical Decision Making 12/22/16 00:22 Dr. Rowe: The scribe's documentation has been prepared under my direction and personally reviewed by me in its entirery. I confirm that the note above accurately reflects all work, treatment, procedures, and medical decision making performed by me. Head ct scan and ct scan of cervical spine are negative. Pt hemodynamically stable. Pt to return to [facility]. <Alessandro Rowe - Last Filed: 12/22/16 00:24> *DC/Admit/Observation/Transfer - Attestations Scribe Attestion: 12/22/16 00:15 Documentation prepared by Carri Sanchez, acting as medical center director for Alessandro Rowe MD <Carri Sanchez - Last Filed: 12/22/16 00:14> - Discharge Dispostion Admit: No <Alessandro Rowe - Last Filed: 12/22/16 00:24> Diagnosis at time of Disposition: Closed head injury Qualifiers: Encounter type: initial encounter Qualified Code(s): S09.90XA - Unspecified injury of head, initial encounter - Discharge Dispostion Disposition: I.P. ALCOHOL/SUBS ABUSE REHAB Condition at time of disposition: Stable - Patient Instructions Printed Discharge Instructions: DI for Closed Head Injury
[2016-12-21] MEDS ORDERED: ACETAMINOPHEN 325 MG TABLET (FP) PO ONE (23:14)
[2016-12-21] MEDS ORDERED: ACETAMINOPHEN 325 MG TABLET (FP) ONE ×2 (23:16→23:21)
[2016-12-22] MEDS ORDERED: chlordiazePOXIDE HCL 25 MG CAPSULE PO ONE (00:53)
[2016-12-22] MEDS ORDERED: chlordiazePOXIDE HCL 25 MG CAPSULE ONE (00:54)
== END 2016-12-22 01:12 | disposition other institution (70) ==
LOC: JER 22:46
DX: S09.90XA Unspecified injury of head, initial encounter (principal); W18.30XA Fall on same level, unspecified, initial encounter; Y93.9 Activity, unspecified; Y92.239 Unspecified place in hospital as the place of occurrence of the external cause; F10.10 Alcohol abuse, uncomplicated; E11.9 Type 2 diabetes mellitus without complications; F17.210 Nicotine dependence, cigarettes, uncomplicated
CPT/HCPCS: 70450-TC; 72125-TC; 99283-25

== ENCOUNTER 2016-12-22 05:11 | Inpatient (IN) | payer OTHER ==
[2016-12-22] MEDS ORDERED: SODIUM CHLORIDE 1,000 ML IV STA (05:14)
[2016-12-22] MEDS ORDERED: chlordiazePOXIDE HCL 25 MG CAPSULE PO ONE (05:15)
--- NOTE | 2016-12-22 05:16 | PDOC ---
History of Present Illness - General History Source: Patient Exam Limitations: No Limitations - History of Present Illness Initial Comments: 12/22/16 05:36 The patient is a 56 year old male with significant past medical history of etoh abuse and diabetes who presents to the ED BIBA from [facility] for s /p witnessed fall prior to arrival. Patient returned again from the detox center for a second time for a fall. States he hit his head again in the same area (left frontotemporal region) and now has pain to the area. Unknown LOC. No changes in vision or dizziness. The patient denies fever, chills, cough, SOB, chest pain, and palpitations. The patient denies abdominal pain, nausea, vomiting, and diarrhea. Allergies: NKDA Social History: etoh abuse, current smoker (ppd), polysubstance use (heroin) Past Surgical History: hernia repair PCP: None reported <Carri Sanchez - Last Filed: 12/22/16 06:26> - General History Source: Patient <Alessandro Rowe - Last Filed: 12/22/16 19:38> - General Stated Complaint: FALL Time Seen by Provider: 12/22/16 05:13 Past History <Carri Sanchez - Last Filed: 12/22/16 06:26> - Past Medical History Anemia: No Asthma: No Cancer: No Cardiac Disorders: No CVA: No COPD: No CHF: No Dementia: No Diabetes: Yes (Type II dx 2004) GI Disorders: No Disorders: No HTN: No Hypercholesterolemia: No Kidney Stones: No Liver Disease: No Suicide Attempt (Hx): No Seizures: No Thyroid Disease: No - Surgical History Abdominal Surgery: Yes (hernia repair ) Appendectomy: No Cardiac Surgery: No Cholecystectomy: No Lung Surgery: No Neurologic Surgery: No Orthopedic Surgery: No - Reproductive History Testicular Surgery: No - Psycho/Social/Smoking Cessation Hx Anxiety: No Suicidal Ideation: No Smoking History: Current every day smoker Have you smoked in the past 12 months: Yes Number of Cigarettes Smoked Daily: 20 'Breaking Loose' booklet given: 12/18/16 Hx Alcohol Use: Yes Drug/Substance Use Hx: No (Heroin and alcohol) Substance Use Type: Alcohol, Heroin Hx Substance Use Treatment: No <Alessandro Rowe - Last Filed: 12/22/16 19:38> - Past Medical History Allergies/Adverse Reactions: Allergies Allergy/AdvReac Type Severity Reaction Status Date / Time No Known Allergies Allergy Verified 12/22/16 05:16 Home Medications: Ambulatory Orders Benztropine Mesylate [Cogentin -] 1 mg PO DAILY #30 tablet 12/20/16 Perphenazine [Trilafon -] 4 mg PO BID #60 tablet 12/20/16 Quetiapine Fumarate [Seroquel] 100 mg PO BID #60 tablet 12/20/16 Review of Systems - Review of Systems Able to Perform ROS?: Yes Comments:: 12/22/16 05:36 CONSTITUTIONAL: Absent: fever, no chills, no fatigue EYES: Absent: visual changes ENT: Absent: ear pain, no sore throat CARDIOVASCULAR: Absent: chest pain, no palpitations RESPIRATORY: Absent: cough, no SOB GI: Absent: abdominal pain, no nausea, no vomiting, no constipation, no diarrhea GENITOURINARY: Absent: dysuria, no frequency, no hematuria MUSCULOSKELETAL: Absent: back pain, no arthralgia, no myalgia SKIN: Absent: rash NEURO: +pain to the left frontotemporal region <Carri Sanchez - Last Filed: 12/22/16 06:26> *Physical Exam - Vital Signs Last Vital Signs Temp Pulse Resp BP Pulse Ox 97.9 F 100 H 20 101/75 96 12/22/16 05:16 12/22/16 05:16 12/22/16 05:16 12/22/16 05:16 12/22/16 05:16 - Physical Exam Comments: 12/22/16 05:36 GENERAL: Well-appearing, well-nourished. No apparent distress. HEENT: Normocephalic. PERRL, EOM intact. No racoon or marti sign. Small area of swelling to the left frontotemporal region. No hematoma. No ecchymosis. No bony deformity. CARDIOVASCULAR: Normal S1, S2. Regular rate and rhythm. PULMONARY: Clear to auscultation bilaterally. ABDOMEN: Soft, non-distended, non-tender. EXTREMITIES: Normal ROM in all four extremities. No gross deformities. SKIN: Warm, dry. No rash NEUROLOGICAL: No focal neurological deficits. <Carri Sanchez - Last Filed: 12/22/16 06:26> ED Treatment Course - LABORATORY CBC & Chemistry Diagram: 12/22/16 06:05 12/22/16 06:05 - RADIOLOGY Radiograph Interpretation: 12/22/16 06:26 EXAM: CT brain without contrast Reviewed by Imaging collections officer: FINDINGS: The ventricular system is midline and nondilated. The sulcal pattern is normal for the patient's age. 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 No skull fracture or skull lesion is identified. The visualized paranasal sinuses and mastoid air cells are clear. IMPRESSION: No acute pathology. EXAM: CT cervical spine without contrast Reviewed by Imaging collections officer: FINDINGS: There is no fracture, subluxation, prevertebral soft tissue swelling. There are mild degenerative changes. Bilateral emphysema is noted. IMPRESSION: No fracture. Emphysema. <Carri Sanchez - Last Filed: 12/22/16 06:26> - LABORATORY CBC & Chemistry Diagram: 12/22/16 06:05 12/22/16 06:05 <Alessandro Rowe - Last Filed: 12/22/16 19:38> Medical Decision Making - Medical Decision Making 12/22/16 19:37 Dr. Rowe: The scribe's documentation has been prepared under my direction and personally reviewed by me in its entirery. I confirm that the note above accurately reflects all work, treatment, procedures, and medical decision making performed by me. patient's s/p fall twice at [facility]. Labs drawn, and it was discovered that has acute renal insufficiency. patient admitted evaluation <Alessandro Rowe - Last Filed: 12/22/16 19:38> *DC/Admit/Observation/Transfer - Attestations Scribe Attestion: 12/22/16 05:36 Documentation prepared by Carri Sanchez, acting as expert medical writer for Alessandro Rowe MD <Carri Sanchez - Last Filed: 12/22/16 06:26> <Alessandro Rowe - Last Filed: 12/22/16 19:38> Diagnosis at time of Disposition: Alcohol dependence, Acute renal injury - Discharge Dispostion Condition at time of disposition: Fair
[2016-12-22 06:19] LABS: BASOPHIL 0.7 % (0-2.0); EOSINOPHIL 0.9 % (0-4.5); MCH 34.7 pg (25.7-33.7); MCHC 33.3 g/dl (32.0-35.9); MEAN PLT VOLUME 9.2 fl (7.5-11.1); PLATELET COUNT 211 K/MM3 (134-434); RDW 16.9 % (11.9-15.9); WHITE BLOOD COUNT 11.5 K/mm3 (4.0-10.0)
[2016-12-22] MEDS ORDERED: chlordiazePOXIDE HCL 25 MG CAPSULE ONE (06:21)
[2016-12-22 06:42] LABS: BILIRUBIN,TOTAL 0.6 mg/dL (0.2-1.0); CALCIUM 9.3 mg/dL (8.5-10.1); COCKROFT - GAULT 39.6; CREATININE 2.7 mg/dL (0.7-1.3); TOT PROT 8.2 g/dl (6.4-8.2)
--- NOTE | 2016-12-22 07:41 | PDOC ---
*Physical Exam - Vital Signs Last Vital Signs Temp Pulse Resp BP Pulse Ox 97.9 F 100 H 20 101/75 96 12/22/16 05:16 12/22/16 05:16 12/22/16 05:16 12/22/16 05:16 12/22/16 05:16 - Physical Exam Comments: 12/22/16 07:35 VSS alert, nad no obvious trauma, FROM cervical spine speaking full sentences, comfortable and pleasant Heart Score/ECG Review #1 ECG reviewed & interpreted by me at: 07:41 General ECG Interpretation: Sinus Rhythm, Normal Rate (99), Normal Intervals ( qtc 459, LVH), No acute ischemic changes ED Treatment Course - LABORATORY CBC & Chemistry Diagram: 12/22/16 06:05 12/22/16 06:05 - ADDITIONAL ORDERS Additional order review: Laboratory Results 12/22/16 06:05 Sodium 139 Potassium 4.2 Chloride 100 Carbon Dioxide 27 Anion Gap 12 BUN 26 H D Creatinine 2.7 H D Creat Clearance w eGFR 24.39 Random Glucose 130 H Calcium 9.3 Magnesium 3.0 H Total Bilirubin 0.6 D AST 22 D ALT 22 Alkaline Phosphatase 99 Total Protein 8.2 Albumin 4.0 12/22/16 06:05 RBC 4.62 MCV 104.0 H MCHC 33.3 RDW 16.9 H MPV 9.2 Neutrophils % 63.0 Lymphocytes % 25.8 Monocytes % 9.6 Eosinophils % 0.9 Basophils % 0.7 - RADIOLOGY Radiology Studies Ordered: Category Date Time Status CHEST X-RAY PORTABLE* [RAD] Stat Radiology 12/22/16 07:35 Ordered - Medications Given in the ED: ED Medications Discontinued Medications Generic Name Dose Route Start Last Admin Trade Name Freq PRN Reason Stop Dose Admin Chlordiazepoxide HCl 50 mg 12/22/16 05:15 12/22/16 06:24 Librium - PO 12/22/16 05:16 50 mg ONCE ONE Administration Sodium Chloride 1,000 mls @ 1,000 mls/hr 12/22/16 05:14 12/22/16 06:16 Normal Saline - IV 12/22/16 06:13 1,000 mls/hr ASDIR STA Administration Medical Decision Making - Medical Decision Making 12/22/16 07:36 Received signout on this 56-year-old male with history of EtOH abuse and diabetes, undergoing detox at [facility] sent to ED for second fall with head injury. CT head and CT c-spine negative times two. Labs from 2nd visit reveal newly elevated Cr of 2.7, up from 1 on 12/19. Will admit for management of ZOIE in diabetic. Receiving IV fluids, VSS at this time. Pt made aware, understands and agrees with plan. No PMD, will admit to service. 12/22/16 08:54 Accepted for inpatient med/surg by Dr. Zheng. *DC/Admit/Observation/Transfer Diagnosis at time of Disposition: Alcohol dependence, Acute renal injury - Discharge Dispostion Condition at time of disposition: Fair Admit: Yes
[2016-12-22] MEDS ORDERED: METHADONE HCL 10 MG TABLET PO ONE ×2 (10:51)
[2016-12-22] MEDS ORDERED: PERPHENAZINE 4 MG TABLET PO SCH (11:00)
[2016-12-22] MEDS: SODIUM CHLORIDE 1,000 ML IV SCH ×2 (11:12→19:42)
[2016-12-22] MEDS: QUEtiapine FUMARATE 100 MG TABLET (FP) PO SCH ×2 (11:30→21:15)
--- NOTE | 2016-12-22 11:49 | HP ---
CHIEF COMPLAINT: recent falls x 2, ZOIE, current detox program PCP: does not have one HISTORY OF PRESENT ILLNESS: This 56 yr male who is from [facility] for alcohol and drug use. He entered [facility] on 12/18 for detox program. Last evening and this morning pt had a fall, stating he hit his head on the garbage pail. One fall was witnessed without a syncopal episode and one fall that was unwitnessed and ? + syncopal epsiode per pt. Initially he was seen in the ER and discharged back to [facility] when 6 hours later he proceeded to have a second fall. This exam in the ED had a finding of a double cr compared to 4 days ago. Pt has no known history of renal injury, insufficiency, disease and cr was stable prior to this finding. Pt c/o general body aches, headaches, sweating and mild anxiety which is noted to be the similar complaints that were made in [facility]. Denies nausea, vomiting, chest pain, shortness of breath. ER course was notable for: (1) falls: head and cervical CT negative, CXR no infiltrate, no obvious fx. (2) acute renal insufficiency; IVF started for dehydration (3) Recent Travel: none PAST MEDICAL HISTORY: ETOH abuse, drug abuse, NIDDM, schizophrenic, depression, PAST SURGICAL HISTORY: hernia repair 2004 Social History: Smoking: current 2PPD Alcohol:user, rum/beer 1 pint daily; last use 12/18 Drugs: user, heroin, 2 bundles a day, inhalation, last use 12/18 Family History: Allergies No Known Allergies Allergy (Verified 12/22/16 05:16) HOME MEDICATIONS: Home Medications Medication Instructions Recorded Benztropine Mesylate [Cogentin -] 1 mg PO DAILY #30 tablet 12/20/16 Perphenazine [Trilafon -] 4 mg PO BID #60 tablet 12/20/16 Quetiapine Fumarate [Seroquel] 100 mg PO BID #60 tablet 12/20/16 REVIEW OF SYSTEMS CONSTITUTIONAL: Absent: fever, chills, , generalized weakness, malaise, loss of appetite, weight change, (+) diaphoresis HEENT: Absent: rhinorrhea, nasal congestion, throat pain, throat swelling, difficulty swallowing, mouth swelling, ear pain, eye pain, visual changes CARDIOVASCULAR: Absent: chest pain, palpitations, irregular heart rate, lightheadedness, peripheral edema, (+)syncope, RESPIRATORY: Absent: cough, shortness of breath, dyspnea with exertion, orthopnea, wheezing, stridor, hemoptysis GASTROINTESTINAL: Absent: abdominal pain, abdominal distension, nausea, vomiting, diarrhea, constipation, melena, hematochezia GENITOURINARY: Absent: dysuria, frequency, urgency, hesitancy, hematuria, flank pain, genital pain MUSCULOSKELETAL: Absent: myalgia, arthralgia, joint swelling, (+) chronic back pain, neck pain SKIN: Absent: rash, itching, pallor HEMATOLOGIC/IMMUNOLOGIC: Absent: easy bleeding, easy bruising, lymphadenopathy, frequent infections ENDOCRINE: Absent: unexplained weight gain, unexplained weight loss, heat intolerance, cold intolerance NEUROLOGIC: Absent: headache, focal weakness or paresthesias, seizure, mental status changes, bladder or bowel incontinence, (+) dizziness, unsteady gait, PSYCHIATRIC: Absent: anxiety, depression, suicidal or homicidal ideation, hallucinations. PHYSICAL EXAMINATION Vital Signs - 24 hr 12/22/16 09:16 Pulse Rate [ 81 Apical] Respiratory 19 Rate Blood Pressure 135/76 [Left Arm] O2 Sat by Pulse 94 L Oximetry (%) GENERAL: Awake, alert, and oriented to Time Place and Person but with short term memory loss, in no acute distress. HEAD: Normal with no signs of trauma. EYES: Pupils equal, round and reactive to light, extraocular movements intact, sclera anicteric, conjunctiva clear. No lid lag. NECK: Normal range of motion, supple without lymphadenopathy, JVD, or masses. LUNGS: Breath sounds equal, clear to auscultation bilaterally. No wheezes, and no crackles. No accessory muscle use. HEART: Regular rate and rhythm, normal S1 and S2 without murmur, rub or gallop. ABDOMEN: Soft, nontender, not distended, normoactive bowel sounds, no guarding, no rebound, no masses. No hepatomegaly or splenomegaly. MUSCULOSKELETAL: Normal range of motion at all joints. No bony deformities or tenderness. No CVA tenderness. UPPER EXTREMITIES: 2+ pulses, warm, well-perfused. No cyanosis. No clubbing. No peripheral edema. LOWER EXTREMITIES: 2+ pulses, warm, well-perfused. No calf tenderness. No peripheral edema. NEUROLOGICAL: slow speech clear but can be slurred. PSYCHIATRIC: Cooperative. Good eye contact. Appropriate mood and affect. SKIN: Warm, dry, normal turgor, no rashes or lesions noted, normal capillary refill. ASSESSMENT/PLAN: 56 yr old male in the process of detox ETOH and drugs, two falls with and without syncope, new acute renal insufficiency findings 1. ZOIE -IVF for hydration -repeat labs tomorrow and trend 2. falls -CT currently negative -PT evaluation scheduled. -assistance oob -no narcotics for pain, tylenol only 3. Detox -discussed with Dr. Adamson at [facility] pt's current treatment regimen -today methadone 10 mg x 1 -12/23 dose of methadone 5 mg x1 and then complete -monitor withdrawal symptoms 4. NIDDM -fingersticks on a ADA diet -to be notified if glucose over 120 5. Psychiatric Schizophrenic, Depression -continue psych meds -if stable pt should continue meds, if needed, psych eval if needed -refer to OP psychiatry for medication regimen and follow Visit type - Emergency Visit Emergency Visit: Yes ED Registration Date: 12/22/16 Care time: The patient presented to the Emergency Department on the above date and was hospitalized for further evaluation of their emergent condition. - New Patient This patient is new to me today: Yes Date on this admission: 12/22/16 - Critical Care Critical Care patient: No
--- NOTE | 2016-12-22 11:50 | EKG ---
Test Reason : Blood Pressure : / mmHG Vent. Rate : 099 BPM Atrial Rate : 099 BPM P-R Int : 146 ms QRS Dur : 078 ms QT Int : 358 ms P-R-T Axes : 055 020 031 degrees QTc Int : 459 ms POOR DATA QUALITY, INTERPRETATION MAY BE ADVERSELY AFFECTED NORMAL SINUS RHYTHM MODERATE VOLTAGE CRITERIA FOR LVH, MAY BE NORMAL VARIANT BORDERLINE ECG WHEN COMPARED WITH ECG OF 18-DEC-2016 17:30, NO SIGNIFICANT CHANGE WAS FOUND Confirmed by BEULAH RECIO, ARIS ([id number]) on 12/22/2016 11:49:35 AM Referred By: Confirmed By:ARIS RIOJAS MD
[2016-12-22 12:03] LABS: URINE APPEARANCE CLEAR; URINE BILIRUBIN NEGATIVE (NEGATIVE); URINE COLOR YELLOW; URINE GLUCOSE (UA) NEGATIVE (NEGATIVE); URINE KETONE NEGATIVE (NEGATIVE); URINE NITRITE NEGATIVE (NEGATIVE); URINE UROBILINOGEN NEGATIVE E.U./dl (0.2-1.0)
[2016-12-22 12:18] LABS: URINE BLOOD 3+ (NEGATIVE); URINE LEUK ESTERASE TRACE (NEGATIVE); URINE PROTEIN 2+ (NEGATIVE)
[2016-12-22] MEDS: BENZTROPINE MESYLATE 1 MG TABLET (FP) PO SCH (12:30)
[2016-12-22] MEDS ORDERED: ACETAMINOPHEN 325 MG TABLET (FP) ONE (12:30)
[2016-12-22] MEDS: THIAMINE HCL 100 MG TABLET (FP) PO SCH (12:30)
[2016-12-22 12:34] LABS: GRANULAR CASTS 14 /lpf; URINE HYALINE CAST 57 /lpf; URINE MUCUS RARE; URINE RBC 73 /hpf (0-3); URINE WBC 5 /hpf (3-5)
[2016-12-22] MEDS: NICOTINE 21 MG/24 HOURS TOPICAL PATCH TD SCH (12:36)
[2016-12-22] MEDS: PERPHENAZINE 4 MG TABLET PO SCH ×2 (12:36→21:14)
[2016-12-22] MEDS: ACETAMINOPHEN 500 MG TABLET (FP) PO ONE ×2 (12:39→12:40)
[2016-12-22] MEDS ORDERED: ACETAMINOPHEN 325 MG TABLET (FP) PO ONE (12:45)
[2016-12-22 15:19] VITALS: BMI 30.5
[2016-12-22] MEDS ORDERED: QUEtiapine FUMARATE 50 MG TABLET ONE (20:46)
[2016-12-23] MEDS: ACETAMINOPHEN 325 MG TABLET (FP) PO PRN ×2 (02:25→09:57)
[2016-12-23 07:41] LABS: BASOPHIL 1.3 % (0-2.0); EOSINOPHIL 1.4 % (0-4.5); MCH 35.2 pg (25.7-33.7); MCHC 33.3 g/dl (32.0-35.9); MEAN CELL VOLUME 105.8 fl (80-96); MEAN PLT VOLUME 9.1 fl (7.5-11.1); NEUTROPHILS 60.4 % (42.8-82.8); PLATELET COUNT 172 K/MM3 (134-434); RDW 16.8 % (11.9-15.9); WHITE BLOOD COUNT 9.5 K/mm3 (4.0-10.0)
[2016-12-23] MEDS ORDERED: METHADONE HCL 5 MG TABLET PO ONE (08:00)
[2016-12-23 08:01] LABS: INR 1.01 (0.82-1.09); PROTHROMBIN TIME (PATIENT) 11.1 SEC (9.98-11.88)
[2016-12-23 08:16] LABS: ALBUMIN 3.6 g/dl (3.4-5.0); ANION GAP 10 (8-16); CALCIUM 8.6 mg/dL (8.5-10.1); CO2 26 mmol/L (21-32); CREATININE 1.7 mg/dL (0.7-1.3); GLUCOSE,RANDOM 102 mg/dL (74-106); MAGNESIUM 2.6 mg/dL (1.8-2.4); PHOSPHOROUS 3.7 mg/dL (2.5-4.9); SGOT/AST 16 U/L (15-37); SGPT/ALT 20 U/L (12-78)
[2016-12-23 08:18] LABS: ALK PHOS 90 U/L (45-117); TOT PROT 7.4 g/dl (6.4-8.2)
[2016-12-23] MEDS ORDERED: QUEtiapine FUMARATE 50 MG TABLET ONE ×2 (09:55→21:55)
[2016-12-23] MEDS: NICOTINE 21 MG/24 HOURS TOPICAL PATCH TD SCH (09:56)
[2016-12-23] MEDS: QUEtiapine FUMARATE 100 MG TABLET (FP) PO SCH ×2 (09:57→22:26)
[2016-12-23] MEDS: THIAMINE HCL 100 MG TABLET (FP) PO SCH (09:57)
[2016-12-23] MEDS: BENZTROPINE MESYLATE 1 MG TABLET (FP) PO SCH (09:58)
[2016-12-23] MEDS: PERPHENAZINE 4 MG TABLET PO SCH ×2 (09:59→22:27)
[2016-12-23] MEDS ORDERED: SODIUM CHLORIDE 1,000 ML IV STA (12:04)
[2016-12-23] MEDS: SODIUM CHLORIDE 1,000 ML IV SCH ×3 (12:55→18:46)
[2016-12-23] MEDS ORDERED: FOLIC ACID INJECTION - 1 MG, THIAMINE HCL 100 MG, MULTIVIT INJECTION ADULT 10 ML in SOD... IVPB ONE (14:46)
--- NOTE | 2016-12-23 14:53 | PN ---
Addendum entered and electronically signed by Rick Streeter RES 12/23/16 16:02: will give folic acid 1mg po daily Addendum entered and electronically signed by Rick Streeter RES 12/23/16 15:09: correction patient does not have anemia but has macrocytosis. Original Note: Physical Exam: SUBJECTIVE: Patient seen and examined at bedside had acute urinary retention yesterday albert inserted and 800ml of dark urine was drained patient feels better today wants to go home OBJECTIVE: Vital Signs Period Temp Pulse Resp BP Sys/Gamino Pulse Ox Last 24 Hr 97.0 F-98.7 F 88-105 20-22 110-148/68-88 96-96 GENERAL: The patient is awake, alert, and fully oriented, in no acute distress. HEAD: Normal with no signs of trauma. EYES: PERRL, extraocular movements intact, sclera anicteric ENT: Dry mucous membranes. LUNGS: Breath sounds equal, clear to auscultation bilaterally, no wheezes, no crackles, no accessory muscle use. HEART: Regular rate and rhythm, S1, S2 without murmur, rub or gallop. ABDOMEN: Soft, nontender, nondistended, normoactive bowel sounds. diastais recti noted EXTREMITIES: warm, well-perfused, no edema. PSYCH: Normal mood, normal affect. Laboratory Results - last 24 hr 12/22/16 12/22/16 12/23/16 16:14 23:17 05:35 WBC RBC Hgb Hct MCV MCHC RDW Plt Count MPV Neutrophils % Lymphocytes % Monocytes % Eosinophils % Basophils % Macrocytosis Morphology Comment INR Sodium Potassium Chloride Carbon Dioxide Anion Gap BUN Creatinine Creat Clearance w eGFR POC Glucometer 116 153 128 Random Glucose Calcium Phosphorus Magnesium Total Bilirubin AST ALT Alkaline Phosphatase Creatine Kinase Creatine Kinase Index CK-MB (CK-2) CK-MB (CK-2) Rel Index Total Protein Albumin 12/23/16 12/23/16 12/23/16 06:40 06:40 06:40 WBC 9.5 RBC 4.33 Hgb 15.2 Hct 45.8 MCV 105.8 H MCHC 33.3 RDW 16.8 H Plt Count 172 MPV 9.1 Neutrophils % 60.4 Lymphocytes % 28.1 Monocytes % 8.8 Eosinophils % 1.4 Basophils % 1.3 Macrocytosis 3+ Morphology Comment Slide scanned INR 1.01 Sodium 140 Potassium 4.3 Chloride 104 Carbon Dioxide 26 Anion Gap 10 BUN 26 H Creatinine 1.7 H D Creat Clearance w eGFR 41.60 POC Glucometer Random Glucose 102 D Calcium 8.6 Phosphorus 3.7 Magnesium 2.6 H Total Bilirubin 1.0 D AST 16 D ALT 20 Alkaline Phosphatase 90 Creatine Kinase 167 Creatine Kinase Index < 0.5 CK-MB (CK-2) < 1.000 CK-MB (CK-2) Rel Index Total Protein 7.4 Albumin 3.6 12/23/16 06:40 WBC RBC Hgb Hct MCV MCHC RDW Plt Count MPV Neutrophils % Lymphocytes % Monocytes % Eosinophils % Basophils % Macrocytosis Morphology Comment INR Sodium Potassium Chloride Carbon Dioxide Anion Gap BUN Creatinine Creat Clearance w eGFR POC Glucometer Random Glucose Calcium Phosphorus Magnesium Total Bilirubin AST ALT Alkaline Phosphatase Creatine Kinase Creatine Kinase Index CK-MB (CK-2) CK-MB (CK-2) Rel Index Cancelled Total Protein Albumin Active Medications Generic Name Dose Route Start Last Admin Trade Name Freq PRN Reason Stop Dose Admin Acetaminophen 975 mg 12/22/16 12:10 12/23/16 09:57 Tylenol - PO 975 mg Q4H PRN Administration FEVER OR PAIN Benztropine Mesylate 1 mg 12/22/16 11:00 12/23/16 09:58 Cogentin - PO 1 mg DAILY CARTER Administration Sodium Chloride 1,000 mls @ 150 mls/hr 12/23/16 12:04 12/23/16 12:55 Normal Saline - IV 150 mls/hr ASDIR CARTER Administration Folic Acid 1 mg/ Thiamine HCl 1,000 mls @ 125 mls/hr 12/23/16 14:46 100 mg/ Multivitamins/Minerals IVPB 12/23/16 22:45 10 ml/ Sodium Chloride ONCE ONE Nicotine 21 mg 12/22/16 11:00 12/23/16 09:56 Nicoderm Patch - TD 21 mg DAILY CARTER Administration Perphenazine 4 mg 12/22/16 11:00 12/23/16 09:59 Trilafon PO 4 mg BID CARTER Administration Quetiapine Fumarate 100 mg 12/22/16 11:00 12/23/16 09:57 Seroquel - PO 100 mg BID CARTER Administration Thiamine HCl 100 mg 12/22/16 11:00 12/23/16 09:57 Vitamin B1 - PO 100 mg DAILY CARTER Administration ASSESSMENT/PLAN: 56M with history of DM schizophrenia and polysubstance abuse [facility] the [facility] found to be in acute renal failure. s/p mechanical fall: Head CT negative for acute pathology CT C-spine negative for acute pathology CXR no fractures noted PT consult for evaluation Acute kidney injury: from dehydration as it has significantly improved with IVF. Patient admitted that he was not eating and was onlying drinking beer from the moment he woke up until he went to sleep Urine very dark but is lightening up with IVF give one liter bolus now increase NS to 150ml/hr Trend Cr avoid nephrotoxic drugs [id number] Polysubstance Abuse: finished methadone taper today counselled patient on need for abstinence and advised him to join AA/NA for support Monitor for withdrawals patient not interested in going back to [facility] for rehab and wants to go to the outpatient program so he could see his son Thiamine daily Give Banana Bag MCV slightly increased consistent with macrocytic anemia: from alcoholism give thiamine banana bag when banana bag done give multivitamin Acute urinary retention: Resolved Albert D/C'ed and passed trial of void NIDDM: Diet controlled fingersticks very well controlled at this time continue to trend fingersticks for BGM diabetic diet Schizophrenia/Depression: no currently active continue Benztropine continue Perphenazine continue seroquel FEN: NS @ 150ml/hr no electrolyte issues diabetic diet PPx: HSQ/SCDs No GI PPx indicated PT consult Visit type - Emergency Visit Emergency Visit: Yes ED Registration Date: 12/22/16 Care time: The patient presented to the Emergency Department on the above date and was hospitalized for further evaluation of their emergent condition. - New Patient This patient is new to me today: Yes Date on this admission: 12/23/16 - Critical Care Critical Care patient: No
[2016-12-23] MEDS: HEPARIN NA (PORCINE) 5,000 UNITS/ML 1ML VIAL SQ SCH ×2 (16:55→22:26)
[2016-12-23] MEDS: FOLIC ACID 1 MG TABLET (FP) PO SCH (17:17)
--- NOTE | 2016-12-23 18:59 | PN ---
Teaching Attending Note Name of Resident: Rick Streeter ATTENDING PHYSICIAN STATEMENT I saw and evaluated the patient. I reviewed the resident's note and discussed the case with the resident. I agree with the resident's findings and plan as documented. Patient is comfortable with no acute distress, wants the albert out. Vital Signs Temperature 98.9 F 12/23/16 14:57 Pulse Rate 84 12/23/16 14:57 Respiratory Rate 17 12/23/16 14:57 Blood Pressure 108/57 12/23/16 14:57 O2 Sat by Pulse Oximetry (%) 95 12/23/16 09:00 CBCD WBC 9.5 K/mm3 (4.0-10.0) 12/23/16 06:40 RBC 4.33 M/mm3 (4.00-5.60) 12/23/16 06:40 Hgb 15.2 GM/dL (11.7-16.9) 12/23/16 06:40 Hct 45.8 % (35.4-49) 12/23/16 06:40 MCV 105.8 fl (80-96) H 12/23/16 06:40 MCHC 33.3 g/dl (32.0-35.9) 12/23/16 06:40 RDW 16.8 % (11.9-15.9) H 12/23/16 06:40 Plt Count 172 K/MM3 (134-434) 12/23/16 06:40 MPV 9.1 fl (7.5-11.1) 12/23/16 06:40 CMP Sodium 140 mmol/L (136-145) 12/23/16 06:40 Potassium 4.3 mmol/L (3.5-5.1) 12/23/16 06:40 Chloride 104 mmol/L (98-107) 12/23/16 06:40 Carbon Dioxide 26 mmol/L (21-32) 12/23/16 06:40 Anion Gap 10 (8-16) 12/23/16 06:40 BUN 26 mg/dL (7-18) H 12/23/16 06:40 Creatinine 1.7 mg/dL (0.7-1.3) H D 12/23/16 06:40 Creat Clearance w eGFR 41.60 (>60) 12/23/16 06:40 Random Glucose 102 mg/dL (74-106) D 12/23/16 06:40 Calcium 8.6 mg/dL (8.5-10.1) 12/23/16 06:40 Total Bilirubin 1.0 mg/dL (0.2-1.0) D 12/23/16 06:40 AST 16 U/L (15-37) D 12/23/16 06:40 ALT 20 U/L (12-78) 12/23/16 06:40 Alkaline Phosphatase 90 U/L (45-117) 12/23/16 06:40 Total Protein 7.4 g/dl (6.4-8.2) 12/23/16 06:40 Albumin 3.6 g/dl (3.4-5.0) 12/23/16 06:40 CARDIAC ENZYMES Creatine Kinase 167 IU/L (39-308) 12/23/16 06:40 Current Medications Generic Name Dose Route Start Last Admin Trade Name Freq PRN Reason Stop Dose Admin Acetaminophen 975 mg 12/22/16 12:10 12/23/16 09:57 Tylenol - PO 975 mg Q4H PRN Administration FEVER OR PAIN Benztropine Mesylate 1 mg 12/22/16 11:00 12/23/16 09:58 Cogentin - PO 1 mg DAILY CATRER Administration Folic Acid 1 mg 12/23/16 16:15 12/23/16 17:17 Folic Acid - PO 1 mg DAILY CARTER Administration Heparin Sodium (Porcine) 5,000 unit 12/23/16 15:15 12/23/16 16:55 Heparin - SQ 5,000 unit TID CARTER Administration Sodium Chloride 1,000 mls @ 150 mls/hr 12/23/16 12:04 12/23/16 18:46 Normal Saline - IV 150 mls/hr ASDIR CARTER Administration Folic Acid 1 mg/ Thiamine HCl 1,000 mls @ 125 mls/hr 12/23/16 14:46 12/23/16 16 :49 100 mg/ Multivitamins/Minerals IVPB 12/23/16 22:45 125 mls/hr 10 ml/ Sodium Chloride ONCE ONE Administration Nicotine 21 mg 12/22/16 11:00 12/23/16 09:56 Nicoderm Patch - TD 21 mg DAILY CARTER Administration Perphenazine 4 mg 12/22/16 11:00 12/23/16 09:59 Trilafon PO 4 mg BID CARTER Administration Quetiapine Fumarate 100 mg 12/22/16 11:00 12/23/16 09:57 Seroquel - PO 100 mg BID CARTER Administration Thiamine HCl 100 mg 12/22/16 11:00 12/23/16 09:57 Vitamin B1 - PO 100 mg DAILY CARTER Administration Home Medications Medication Instructions Recorded Benztropine Mesylate [Cogentin -] 1 mg PO DAILY #30 tablet 12/20/16 Perphenazine [Trilafon -] 4 mg PO BID #60 tablet 12/20/16 Quetiapine Fumarate [Seroquel] 100 mg PO BID #60 tablet 12/20/[address] negative for acute pathology CT C-spine negative for acute pathology CXR no fractures noted ASSESSMENT AND PLAN: Patient is a 56M with history of DM schizophrenia and polysubstance abuse [facility] the [facility] found to be in acute renal failure. # Acute kidney injury: from dehydration as it has significantly improved with IVF.2.7-->1.7 now, will continue IVF , repeat level in am, cPK within nl level s/p mechanical fall: PT consult for evaluation # Polysubstance Abuse/ETOH abuse: folic acid 1mg continue and thaimine 100mg daily continue finished methadone taper today # macrocytic anemia: will add folic acid daily from alcoholism; give thiamine banana bag ;when banana bag done give multivitamin # Acute urinary retention: Resolved; s/p albert # NIDDM: Diet controlled, sliding scale with coverage ;diabetic diet # Hx of Schizophrenia/Depression: continue meds DVT Px: SCDs PT consult
[2016-12-23] MEDS ORDERED: PT OWN MED DRAWER 7, Y5N ONE (21:56)
[2016-12-24] MEDS: HEPARIN NA (PORCINE) 5,000 UNITS/ML 1ML VIAL SQ SCH (06:43)
[2016-12-24 08:00] VITALS: PULSE 77
[2016-12-24 08:26] LABS: CALCIUM 8.2 mg/dL (8.5-10.1); COCKROFT - GAULT 89.11; CREATININE 1.2 mg/dL (0.7-1.3)
[2016-12-24 08:53] VITALS: BP 160/97; TEMP 98
[2016-12-24] MEDS ORDERED: QUEtiapine FUMARATE 50 MG TABLET ONE (08:56)
[2016-12-24] MEDS ORDERED: PT OWN MED DRAWER 7, Y5N ONE (08:57)
[2016-12-24] MEDS ORDERED: SODIUM CHLORIDE 0.45% 1,000 ML IV SCH (09:00)
[2016-12-24] MEDS ORDERED: ONDANSETRON 4 MG/2 ML VIAL IVPB PRN (09:03)
[2016-12-24] MEDS: QUEtiapine FUMARATE 100 MG TABLET (FP) PO SCH (09:12)
[2016-12-24] MEDS: FOLIC ACID 1 MG TABLET (FP) PO SCH (09:12)
[2016-12-24] MEDS: PERPHENAZINE 4 MG TABLET PO SCH (09:12)
[2016-12-24] MEDS: THIAMINE HCL 100 MG TABLET (FP) PO SCH (09:12)
[2016-12-24] MEDS: BENZTROPINE MESYLATE 1 MG TABLET (FP) PO SCH (09:12)
[2016-12-24] MEDS: NICOTINE 21 MG/24 HOURS TOPICAL PATCH TD SCH (09:16)
[2016-12-24] MEDS: ACETAMINOPHEN 325 MG TABLET (FP) PO PRN (09:19)
--- NOTE | 2016-12-24 10:30 | DS ---
Physical Exam: SUBJECTIVE: Patient seen and examined OBJECTIVE: Vital Signs Period Temp Pulse Resp BP Sys/Gamino Pulse Ox Last 24 Hr 97.8 F-98.9 F 77-100 17-18 108-160/57-97 95-97 PHYSICAL EXAM GENERAL: The patient is awake, alert, and fully oriented, in no acute distress. HEAD: Normal with no signs of trauma. EYES: PERRL, extraocular movements intact, sclera anicteric, conjunctiva clear. ENT: Ears normal, nares patent, oropharynx clear without exudates, moist mucous membranes. NECK: Trachea midline, full range of motion, supple. LUNGS: Breath sounds equal, clear to auscultation bilaterally, no wheezes, no crackles, no accessory muscle use. HEART: Regular rate and rhythm, S1, S2 without murmur, rub or gallop. ABDOMEN: Soft, nontender, nondistended, normoactive bowel sounds, no guarding, no rebound, no hepatosplenomegaly, no masses. EXTREMITIES: 2+ pulses, warm, well-perfused, no edema. NEUROLOGICAL: Cranial nerves II through XII grossly intact. Normal speech, gait not observed. PSYCH: Normal mood, normal affect. SKIN: Warm, dry, normal turgor, no rashes or lesions noted. LABS Laboratory Results - last 24 hr 12/23/16 12/23/16 12/23/16 06:40 06:40 06:40 Macrocytosis 3+ Morphology Comment Slide scanned Sodium Potassium Chloride Carbon Dioxide Anion Gap BUN Creatinine POC Glucometer Random Glucose Calcium Creatine Kinase 167 Creatine Kinase Index < 0.5 CK-MB (CK-2) < 1.000 CK-MB (CK-2) Rel Index Cancelled 12/23/16 12/24/16 12/24/16 22:25 06:15 06:47 Macrocytosis Morphology Comment Sodium 141 Potassium 4.5 Chloride 109 H Carbon Dioxide 25 Anion Gap 7 L BUN 24 H Creatinine 1.2 D POC Glucometer 195 126 Random Glucose 99 Calcium 8.2 L Creatine Kinase Creatine Kinase Index CK-MB (CK-2) CK-MB (CK-2) Rel Index HOSPITAL COURSE: Date of Admission:12/22/16 Date of Discharge: 12/24/16 Discharge Summary Reason For Visit: ALCOHOL DEPENDENCE,ACUTE KIDNEY INJURY Current Active Problems Acute renal injury (Acute) Alcohol dependence (Acute) Condition: Stable - Instructions Diet, Activity, Other Instructions: eat a low sodium low carbohydrate low sugar diet continue your home medications you need to stay abstinent from drugs and alcohol join AA/NA for support follow up with your outpatient rehabilitation center i will give you presriptions for your medications. go to your pharmacy to fill them if you want to follow up with me you can call [phone] and see if the office takes your insurance if not you should follow up with your primary care doctor It was a pleasure taking care of you Good Sacramentocarlos Streeter Disposition: HOME - Home Medications Comprehensive Discharge Medication List: Ambulatory Orders Benztropine Mesylate [Cogentin -] 1 mg PO DAILY #30 tablet 12/24/16 Folic Acid - 1 mg PO DAILY #30 tablet 12/24/16 Perphenazine [Trilafon -] 4 mg PO BID #60 tablet 12/24/16 Quetiapine Fumarate [Seroquel] 100 mg PO BID #60 tablet 12/24/16 Thiamine HCl [Vitamin B1 -] 100 mg PO DAILY #30 tablet 12/24/16
--- NOTE | 2016-12-24 10:53 | DS ---
Physical Exam: SUBJECTIVE: Patient seen and examined at bedside no events overnight OBJECTIVE: Vital Signs Period Temp Pulse Resp BP Sys/Gamino Pulse Ox Last 24 Hr 97.8 F-98.9 F 77-100 17-18 108-160/57-97 95-97 PHYSICAL EXAM GENERAL: The patient is awake, alert, and fully oriented, in no acute distress. HEAD: Normal with no signs of trauma. EYES: PERRL, extraocular movements intact, sclera anicteric ENT: Moist mucous membranes. LUNGS: Breath sounds equal, clear to auscultation bilaterally, no wheezes, no crackles, no accessory muscle use. HEART: Regular rate and rhythm, S1, S2 without murmur, rub or gallop. ABDOMEN: Soft, nontender, nondistended, normoactive bowel sounds. diastais recti noted EXTREMITIES: warm, well-perfused, no edema. PSYCH: Normal mood, normal affect. LABS Laboratory Results - last 24 hr 12/23/16 12/23/16 12/23/16 06:40 06:40 06:40 Macrocytosis 3+ Morphology Comment Slide scanned Sodium Potassium Chloride Carbon Dioxide Anion Gap BUN Creatinine POC Glucometer Random Glucose Calcium Creatine Kinase 167 Creatine Kinase Index < 0.5 CK-MB (CK-2) < 1.000 CK-MB (CK-2) Rel Index Cancelled 12/23/16 12/24/16 12/24/16 22:25 06:15 06:47 Macrocytosis Morphology Comment Sodium 141 Potassium 4.5 Chloride 109 H Carbon Dioxide 25 Anion Gap 7 L BUN 24 H Creatinine 1.2 D POC Glucometer 195 126 Random Glucose 99 Calcium 8.2 L Creatine Kinase Creatine Kinase Index CK-MB (CK-2) CK-MB (CK-2) Rel Index HOSPITAL COURSE: Date of Admission:12/22/16 Date of Discharge: 12/24/16 56M with history of depression schizophrenia and diet controlled diabetes presented [facility] the [facility] found to be in acute renal failure from dehydration. patient admitted to not eating or drinking and only drinking beer. He was given IVF for hydration and Cr. normalized. Also walked by medical team in hallway and was able to walk with a cane over 50 feet without difficulty. Stable for discharge Minutes to complete discharge: 40 Discharge Summary Reason For Visit: ALCOHOL DEPENDENCE,ACUTE KIDNEY INJURY Current Active Problems Acute renal failure (ARF) (Acute) Acute renal injury (Acute) Alcohol dependence (Acute) Closed head injury (Acute) Macrocytosis (Acute) Macrocytosis without anemia (Acute) Alcohol dependence with uncomplicated withdrawal (Chronic) Diabetes 1.5, managed as type 2 (Chronic) NIDDY (non-insulin dependent diabetes mellitus in young) (Chronic) Nicotine dependence (Chronic) Opioid abuse (Chronic) Opioid dependence (Chronic) Paranoid schizophrenia (Chronic) Condition: Stable - Instructions Diet, Activity, Other Instructions: eat a low sodium low carbohydrate low sugar diet continue your home medications you need to stay abstinent from drugs and alcohol join AA/NA for support follow up with your outpatient rehabilitation center buy an over the counter multivitamin and take it daily i will give you prescriptions for your medications. go to your pharmacy to fill them if you want to follow up with me you can call [phone] and see if the office takes your insurance if not you should follow up with your primary care doctor It was a pleasure taking care of you Good [place] Dr. Streeter Disposition: HOME - Home Medications Comprehensive Discharge Medication List: Ambulatory Orders Benztropine Mesylate [Cogentin -] 1 mg PO DAILY #30 tablet 12/24/16 Folic Acid - 1 mg PO DAILY #30 tablet 12/24/16 Perphenazine [Trilafon -] 4 mg PO BID #60 tablet 12/24/16 Quetiapine Fumarate [Seroquel] 100 mg PO BID #60 tablet 12/24/16 Thiamine HCl [Vitamin B1 -] 100 mg PO DAILY #30 tablet 12/24/16 This patient is new to me today: No Emergency Visit: Yes ED Registration Date: 12/22/16 Care time: The patient presented to the Emergency Department on the above date and was hospitalized for further evaluation of their emergent condition. Critical Care patient: No - Discharge Referral Referred to [facility] No Physician Referral: Charbel López MD ([facility])
--- NOTE | 2016-12-24 16:23 | PN ---
Teaching Attending Note Name of Resident: Rick Streeter ATTENDING PHYSICIAN STATEMENT I saw and evaluated the patient. I reviewed the resident's note and discussed the case with the resident. I agree with the resident's findings and plan as documented. Patient is comfortable with no acute distress, no shortness of breath. No fever or chills. Vital Signs Temperature 98.0 F 12/24/16 08:52 Pulse Rate 77 12/24/16 08:52 Respiratory Rate 18 12/24/16 08:52 Blood Pressure 160/97 12/24/16 08:52 O2 Sat by Pulse Oximetry (%) 97 12/24/16 09:00 CBCD WBC 9.5 K/mm3 (4.0-10.0) 12/23/16 06:40 RBC 4.33 M/mm3 (4.00-5.60) 12/23/16 06:40 Hgb 15.2 GM/dL (11.7-16.9) 12/23/16 06:40 Hct 45.8 % (35.4-49) 12/23/16 06:40 MCV 105.8 fl (80-96) H 12/23/16 06:40 MCHC 33.3 g/dl (32.0-35.9) 12/23/16 06:40 RDW 16.8 % (11.9-15.9) H 12/23/16 06:40 Plt Count 172 K/MM3 (134-434) 12/23/16 06:40 MPV 9.1 fl (7.5-11.1) 12/23/16 06:40 CMP Sodium 141 mmol/L (136-145) 12/24/16 06:15 Potassium 4.5 mmol/L (3.5-5.1) 12/24/16 06:15 Chloride 109 mmol/L (98-107) H 12/24/16 06:15 Carbon Dioxide 25 mmol/L (21-32) 12/24/16 06:15 Anion Gap 7 (8-16) L 12/24/16 06:15 BUN 24 mg/dL (7-18) H 12/24/16 06:15 Creatinine 1.2 mg/dL (0.7-1.3) D 12/24/16 06:15 Creat Clearance w eGFR 41.60 (>60) 12/23/16 06:40 Random Glucose 99 mg/dL (74-106) 12/24/16 06:15 Calcium 8.2 mg/dL (8.5-10.1) L 12/24/16 06:15 Total Bilirubin 1.0 mg/dL (0.2-1.0) D 12/23/16 06:40 AST 16 U/L (15-37) D 12/23/16 06:40 ALT 20 U/L (12-78) 12/23/16 06:40 Alkaline Phosphatase 90 U/L (45-117) 12/23/16 06:40 Total Protein 7.4 g/dl (6.4-8.2) 12/23/16 06:40 Albumin 3.6 g/dl (3.4-5.0) 12/23/16 06:40 CARDIAC ENZYMES Creatine Kinase 167 IU/L (39-308) 12/23/16 06:40 Home Medications Medication Instructions Recorded Benztropine Mesylate [Cogentin -] 1 mg PO DAILY #30 tablet 12/24/16 Folic Acid - 1 mg PO DAILY #30 tablet 12/24/16 Perphenazine [Trilafon -] 4 mg PO BID #60 tablet 12/24/16 Quetiapine Fumarate [Seroquel] 100 mg PO BID #60 tablet 12/24/16 Thiamine HCl [Vitamin B1 -] 100 mg PO DAILY #30 tablet 12/24/[address] negative for acute pathology CT C-spine negative for acute pathology CXR no fractures noted ASSESSMENT AND PLAN: Patient is a 56M with history of DM schizophrenia and polysubstance abuse [facility] the [facility] found to be in acute renal failure. # Acute kidney injury improved post IVF due from dehydration as it has significantly improved with IVF.2.7-->1.7-->1.2 today # s/p mechanical fall # Polysubstance Abuse/ETOH abuse: s/p folic acid 1mg continue and thaimine completed methadone taper # macrocytic anemia: from alcoholism; s/p thiamine banana bag # Acute urinary retention: Resolved; # NIDDM: Diet controlled, sliding scale with coverage ;diabetic diet # Hx of Schizophrenia/Depression: continue meds will discharge the patient home. does not want to go to rehab.
== END 2016-12-24 13:16 | disposition home or self-care (01) | DRG 684 ==
LOC: JER 05:11 → JERBED 08:55 → J5S 14:48
PROVIDERS: ADMIT Internal Medicine; ATTEND Internal Medicine
PROC: HZ2ZZZZ Detoxification Services for Substance Abuse Treatment (ICD-10-PCS; principal; 2016-12-22)
DX: N17.9 Acute kidney failure, unspecified (principal); E86.0 Dehydration; E11.9 Type 2 diabetes mellitus without complications; D53.9 Nutritional anemia, unspecified; R33.9 Retention of urine, unspecified; F17.210 Nicotine dependence, cigarettes, uncomplicated; F10.10 Alcohol abuse, uncomplicated; F11.10 Opioid abuse, uncomplicated
CPT/HCPCS: 36415; 70450-TC; 71010-TC; 72125-TC; 80048; 80053; 81003; 81015; 82550; 82553; 83735; 84100; 85025; 85610; 93005; 93010; 97116-GP; 97161-GP; 99284-25; J1644

== ENCOUNTER 2017-12-19 11:47 | Inpatient (IN) | payer BC, OTHER ==
[2017-12-19 13:12] VITALS: BMI 31.6
--- NOTE | 2017-12-19 17:00 | HP ---
COWS - Scale Resting Pulse: 2= MA 101-120 Sweatin= Chills/Flushing Restless Observation: 1= Difficult to Sit Still Pupil Size: 0= Normal to Room Light Bone or Joint Aches: 1= Mild Discomfort Runny Nose/ Eye Tearin= Nasal Congestion GI Upset > 30mins: 2= Nausea/Diarrhea Tremor Observation: 2= Slight Tremor Visible Yawning Observation: 1= 1-2x During Session Anxiety or Irritability: 2=Irritable/Anxious Goose Flesh Skin: 0=Smooth Skin COWS Score: 13 CIWA Score - CIWA Score Nausea/Vomitin-Mild Nausea/No Vomiting Muscle Tremors: 2 Anxiety: 2 Agitation: 0-Normal Activity Paroxysmal Sweats: 1-Minimal Palms Moist Orientation: 1-Uncertain about Date Tacttile Disturbances: 2-Mild Itch/Numbness/Burn Auditory Disturbances: 1-Very Mild Visual Disturbances: 0-None Headache: 3-Moderate CIWA-Ar Total Score: 13 Admission [facility] Chief Complaint: Patient presents for Heroin/Etoh withdrawal symptoms. Allergies/Adverse Reactions: Allergies Allergy/AdvReac Type Severity Reaction Status Date / Time No Known Allergies Allergy Verified 12/22/16 05:16 History of Present Illness: Patient present for ETOH and Heroin withdrawal symptoms. Last attempted detox last year in 2017 here in [facility]. Patient started sniffing heroin at 20 years old. Uses up to 8-9 bags daily. Last use today in the morning. Also drinks 1 pint of liquor and 8 cans of beer daily. Started drinking ETOH at age 3. Last drink this morning. Denies seizures from ETOH use/withdrawal. Denies suicide ideation/ homicidal ideation. Denies any suicide attempts. Has PMH of DM and HTN. Past mental illness + for schizophrenia and depression. Exam Limitations: Intoxication - Ebola screening Have you traveled outside of the country in the last 21 days: No Have you had contact with anyone from an Ebola affected area: No Have you been sick,other than usual withdrawal symptoms: No Do you have a fever: No - Review of Systems Constitutional: Loss of Appetite, Night Sweats, Changes in sleep EENT: reports: Blurred Vision, Nose Congestion Respiratory: reports: Shortness of Breath Cardiac: reports: No Symptoms Reported GI: reports: Diarrhea, Nausea, Poor Appetite, Poor Fluid Intake, Abdominal cramping : reports: No Symptoms Reported Musculoskeletal: reports: Joint Pain, Muscle Pain Integumentary: reports: Flushing Neuro: reports: Headache, Numbness, Tingling, Tremors Endocrine: reports: Flushing Hematology: reports: No Symptoms Reported Psychiatric: reports: Anxious, Depressed, Disorientated (forgetful with date but knows month) Patient History - Patient Medical History Hx Anemia: No Hx Asthma: No Hx Chronic Obstructive Pulmonary Disease (COPD): Yes (untreated in past year) Hx Cancer: No Hx Cardiac Disorders: No Hx Congestive Heart Failure: No Hx Hypertension: Yes (untreated in past year) Hx Hypercholesterolemia: No Hx Pacemaker: No HX Cerebrovascular Accident: No Hx Seizures: No Hx Dementia: No Hx Diabetes: Yes (Type II dx 2004) Hx Gastrointestinal Disorders: No Hx Liver Disease: No Hx Genitourinary Disorders: No Hx Sexually Transmitted Disorders: No Hx Renal Disease (ESRD): No Hx Thyroid Disease: No Hx Human Immunodeficiency Virus (HIV): No Hx Hepatitis C: No Hx Depression: Yes Hx Suicide Attempt: No Hx Bipolar Disorder: No Hx Schizophrenia: Yes - Patient Surgical History Past Surgical History: Yes Hx Neurologic Surgery: No Hx Cataract Extraction: No Hx Cardiac Surgery: No Hx Lung Surgery: No Hx Breast Surgery: No Hx Breast Biopsy: No Hx Abdominal Surgery: Yes (hernia repair ) Hx Appendectomy: No Hx Cholecystectomy: No Hx Genitourinary Surgery: No Hx Section: No Hx Orthopedic Surgery: No Anesthesia Reaction: No - PPD History Previous Implant?: Yes Documented Results: Negative w/proof Date: 12/20/16 PPD to be Administered?: Yes - Smoking Cessation Smoking history: Current every day smoker Have you smoked in the past 12 months: Yes Aproximately how many cigarettes per day: 8 Hx Chewing Tobacco Use: No Initiated information on smoking cessation: Yes 'Breaking Loose' booklet given: 12/19/17 - Substance & Tx. History Hx Alcohol Use: Yes Hx Substance Use: Yes Substance Use Type: Alcohol, Heroin Hx Substance Use Treatment: Yes - Substances Abused Alcohol Route: Oral Frequency: Daily Amount used: LIQUOR- 2 PINTS, BEER- 2 SIX PACK Age of first use: 3 Date of Last Use: 12/19/17 Heroin Route: Inhalation Frequency: Daily Amount used: 9 BAGS Age of first use: 20 Date of Last Use: 12/19/17 Family Disease History - Family Disease History Family Disease History: Diabetes: Mother (ovarian), CA: Mother Admission Physical Exam [facility] - Vital Signs Vital Signs: Vital Signs - 24 hr 12/19/17 13:10 Temperature 96 F L Pulse Rate 119 H Respiratory 18 Rate Blood Pressure 128/70 - Physical General Appearance: Yes: Disheveled, Alcohol on Breath, Tremorous, Sweating, Anxious HEENTM: Yes: Hearing grossly Normal, Normocephalic, Normal Voice, NATASHA, Pharynx Normal, Nasal Congestion Respiratory: Yes: Chest Non-Tender, Lungs Clear, Normal Breath Sounds, No Respiratory Distress, No Accessory Muscle Use Neck: Yes: Within Normal Limits, No masses,lesions,Nodules, Supple Breast: Yes: Breast Exam Deferred Cardiology: Yes: Within Normal Limits, Regular Rhythm, Regular Rate, S1, S2 Abdominal: Yes: Normal Bowel Sounds, Non Tender, Soft Genitourinary: Yes: Within Normal Limits Back: Yes: Muscle Spasm Musculoskeletal: Yes: Back pain, Muscle Pain Extremities: Yes: Tremors Neurological: Yes: contract paralegal II-XII NML intact, Alert, Disoriented (forgetful with date), Depressed Affect Integumentary: Yes: Normal Color, Warm, Moist Lymphatic: Yes: Within Normal Limits - Diagnostic (1) Opioid dependence with withdrawal Current Visit: Yes Status: Acute (2) Alcohol dependence with uncomplicated withdrawal Current Visit: Yes Status: Acute (3) Diabetes 1.5, managed as type 2 Current Visit: No Status: Chronic (4) Nicotine dependence Current Visit: No Status: Chronic Qualifiers: Nicotine product type: cigarettes Substance use status: uncomplicated Qualified Code(s): F17.210 - Nicotine dependence, cigarettes, uncomplicated (5) Paranoid schizophrenia Current Visit: No Status: Chronic (6) Depressed affect Current Visit: Yes Status: Acute Cleared for Admission [facility] - Detox or Rehab [facility] Level of Care: Medically Managed Detox Regimen/Protocol: Methadone/Librium [facility] Breath Alcohol Content Breath Alcohol Content: 0.069 Urine Drug Screen - Results Drug Screen Negative: No Urine Drug Screen Results: OPI-Opiates, TCA-Tricyclic Antidepress Inpatient Rehab Admission - Initial Determination Are CD services needed?: Yes Free of communicable disease: Yes Not in need of hospitalization: Yes - Rehab Admission Criteria Previous failed treatment: Yes Poor recovery environment: Yes Comorbidities: Yes Lacks judgement: Yes
[2017-12-19] MEDS ORDERED: MAGNESIUM HYDROX 2400MG/30ML ORAL SUSPENSION 30 ML CUP PO PRN (17:20)
[2017-12-19] MEDS ORDERED: MAGNESIUM CITRATE 300 ML BOTTLE PO PRN (17:20)
[2017-12-19] MEDS ORDERED: MAG HYDROX/AL HYDROX/SIMETH 30 ML UNIT-DOSE CUP PO PRN (17:20)
[2017-12-19] MEDS ORDERED: LOPERAMIDE HCL 2 MG CAPSULE PO PRN (17:20)
[2017-12-19] MEDS ORDERED: P-EPHED 60MG/TRIPROLIDI 2.5MG TABLET PO PRN (17:20)
[2017-12-19] MEDS ORDERED: NICOTINE POLACRILEX 2 MG GUM BC PRN (17:20)
[2017-12-19] MEDS ORDERED: guaiFENesin/D-METHORPHAN HB 10 ML UNIT-DOSE CUPS PO PRN (17:20)
[2017-12-19] MEDS ORDERED: MENTHOL/PHENOL 1 EACH UD MM PRN (17:20)
[2017-12-19] MEDS ORDERED: chlordiazePOXIDE HCL 25 MG CAPSULE PO PRN (17:25)
[2017-12-19] MEDS ORDERED: chlordiazePOXIDE HCL 25 MG CAPSULE PO ONE (17:45)
[2017-12-19] MEDS ORDERED: METHADONE HCL 10 MG TABLET (FOR DETOX USE ONLY) PO ONE ×2 (17:45→23:00)
[2017-12-19] MEDS: THIAMINE HCL 100 MG TABLET (FP) PO SCH (22:07)
[2017-12-19] MEDS: chlordiazePOXIDE HCL 25 MG CAPSULE PO SCH (22:08)
[2017-12-19 22:40] LABS: URINE APPEARANCE CLEAR; URINE BILIRUBIN NEGATIVE (<2.0 mg/dL); URINE COLOR LTYELLOW; URINE GLUCOSE (UA) NEGATIVE (NEGATIVE); URINE KETONE NEGATIVE (NEGATIVE); URINE LEUK ESTERASE NEGATIVE (NEGATIVE); URINE NITRITE NEGATIVE (NEGATIVE); URINE PROTEIN NEGATIVE (NEGATIVE); URINE UROBILINOGEN NEGATIVE mg/dL (0.2-1.0)
[2017-12-20] MEDS: chlordiazePOXIDE HCL 25 MG CAPSULE PO SCH ×4 (05:44→22:56)
[2017-12-20] MEDS ORDERED: METHADONE HCL 10 MG TABLET (FOR DETOX USE ONLY) PO SCH (10:00)
[2017-12-20 10:14] LABS: HEMOGLOBIN 13.9 GM/dL (11.7-16.9); MCH 35.7 pg (25.7-33.7); MCHC 33.2 g/dl (32.0-35.9); MEAN CELL VOLUME 107.5 fl (80-96); MEAN PLT VOLUME 9.5 fl (7.5-11.1); PLATELET COUNT 251 K/MM3 (134-434); RDW 17.4 % (11.9-15.9); WHITE BLOOD COUNT 7.3 K/mm3 (4.0-10.0)
[2017-12-20] MEDS: PRENATAL VITAMINS W/ FOLIC ACID TABLET (FP) PO SCH (10:18)
[2017-12-20] MEDS: NICOTINE 21 MG/24 HOURS TOPICAL PATCH TD SCH (10:18)
[2017-12-20] MEDS: ACETAMINOPHEN 325 MG TABLET (FP) PO PRN (10:19)
--- NOTE | 2017-12-20 10:26 | EKG ---
Test Reason : Blood Pressure : / mmHG Vent. Rate : 113 BPM Atrial Rate : 113 BPM P-R Int : 158 ms QRS Dur : 082 ms QT Int : 316 ms P-R-T Axes : 016 048 045 degrees QTc Int : 433 ms SINUS TACHYCARDIA POSSIBLE LEFT ATRIAL ENLARGEMENT LEFT VENTRICULAR HYPERTROPHY ABNORMAL ECG WHEN COMPARED WITH ECG OF 22-DEC-2016 07:41, NO SIGNIFICANT CHANGE WAS FOUND Confirmed by MD AVELINO, ROGERS ([id number]) on 12/20/2017 10:25:45 AM Referred By: Confirmed By:ROGERS YOU MD
[2017-12-20 11:13] LABS: CHLORIDE 98 mmol/L (98-107); POTASSIUM 5.1 mmol/L (3.5-5.1); SODIUM 136 mmol/L (136-145)
[2017-12-20 11:20] LABS: ALBUMIN 4.1 g/dl (3.4-5.0); ALK PHOS 113 U/L (45-117); ANION GAP 9 (8-16); BILIRUBIN,TOTAL 0.4 mg/dL (0.2-1.0); BLOOD UREA NITROGEN 13 mg/dL (7-18); CO2 29 mmol/L (21-32); CREATININE 1.1 mg/dL (0.7-1.3); GLUCOSE,RANDOM 105 mg/dL (74-106); SGOT/AST 18 U/L (15-37); SGPT/ALT 13 U/L (12-78); TOT PROT 7.9 g/dl (6.4-8.2)
--- NOTE | 2017-12-20 11:58 | PN ---
S CIWA - CIWA Score Nausea/Vomitin-No Nausea/No Vomiting Muscle Tremors: 4-Moderate,w/Arms Extend Anxiety: 4-Mod. Anxious/Guarded Agitation: 1-Slight > Activity Paroxysmal Sweats: 3 Orientation: 0-Oriented Tacttile Disturbances: 2-Mild Itch/Numbness/Burn Auditory Disturbances: 1-Very Mild Visual Disturbances: 2-Mild Sensitivity Headache: 0-None Present CIWA-Ar Total Score: 17 BHS COWS - Scale Resting Pulse: 2= [place] 101-120 Sweatin= Chills/Flushing Restless Observation: 1= Difficult to Sit Still Pupil Size: 0= Normal to Room Light Bone or Joint Aches: 4=Acute Joint/Muscle Pain Runny Nose/ Eye Tearin= Nasal Congestion GI Upset > 30mins: 0= None Tremor Observation of Outstretched Hands: 0= None Yawning Observation: 1= 1-2x During Session Anxiety or Irritability: 2=Irritable/Anxious Goose Flesh Skin: 3=Piloerection COWS Score: 15 S Progress Note (SOAP) Subjective: Body Aches, Anxious, Sweating, Tremors. Objective: PATIENT A & O X 3. NO ACUTE DISTRESS. 12/20/17 11:58 Vital Signs Temperature 97.2 F L 12/20/17 09:08 Pulse Rate 111 H 12/20/17 09:08 Respiratory Rate 18 12/20/17 09:08 Blood Pressure 114/72 12/20/17 09:08 O2 Sat by Pulse Oximetry (%) Laboratory Tests 12/19/17 12/19/17 12/20/17 16:31 18:34 05:42 WBC RBC Hgb Hct MCV MCH MCHC RDW Plt Count MPV Sodium Potassium Chloride Carbon Dioxide Anion Gap BUN Creatinine Creat Clearance w eGFR POC Glucometer 123 122 Random Glucose Calcium Total Bilirubin AST ALT Alkaline Phosphatase Total Protein Albumin Urine Color Ltyellow Urine Appearance Clear Urine pH 5.0 Ur Specific [place] 1.008 Urine Protein Negative Urine Glucose (UA) Negative Urine Ketones Negative Urine Blood Negative Urine Nitrite Negative Urine Bilirubin Negative Urine Urobilinogen Negative Ur Leukocyte Esterase Negative 12/20/17 12/20/17 06:00 06:00 WBC 7.3 RBC 3.90 L Hgb 13.9 Hct 42.0 MCV 107.5 H MCH 35.7 H MCHC 33.2 RDW 17.4 H Plt Count 251 D MPV 9.5 Sodium 136 Potassium 5.1 Chloride 98 D Carbon Dioxide 29 Anion Gap 9 BUN 13 D Creatinine 1.1 Creat Clearance w eGFR > 60 POC Glucometer Random Glucose 105 Calcium 9.0 Total Bilirubin 0.4 D AST 18 ALT 13 D Alkaline Phosphatase 113 D Total Protein 7.9 Albumin 4.1 Urine Color Urine Appearance Urine pH Ur Specific [place] Urine Protein Urine Glucose (UA) Urine Ketones Urine Blood Urine Nitrite Urine Bilirubin Urine Urobilinogen Ur Leukocyte Esterase LABS NOTED. RPR, HIV AB RESULTS PENDING. 12/20/17 11:59 Assessment: 12/20/17 11:58 WITHDRAWAL SYMPTOMS. Plan: CONTINUE DETOX.
[2017-12-20 12:21] LABS: SICKLE CELL SCREEN POSITIVE (NEGATIVE)
--- NOTE | 2017-12-20 16:11 | CONSULT ---
[facility] Psychiatric Consult - Data Date of interview: 12/20/17 Admission source: [facility] Identifying data: [facility] to [facility] for this 57 y/o AA male seeking detox treatment on for heroin and alcohol dependence.Patient is single,a father of one,domiciled,unemployed and supported on [employer] benefits.Mr Madden states that he served in the [employer] for 11 years (discharged in 1988). Substance Abuse History: Confirmed by patient in this interview. Details in current [facility] report : Smoking history: Current every day smoker. Have you smoked in the past 12 months: Yes. Aproximately how many cigarettes per day: 8. Hx Chewing Tobacco Use: No. Initiated information on smoking cessation: Yes. 'Breaking Loose' booklet given: 12/19/17. - Substance & Tx. History. Hx Alcohol Use: Yes. Hx Substance Use: Yes. Substance Use Type: Alcohol, Heroin. Hx Substance Use Treatment: Yes. - Substances Abused. Alcohol. Route: Oral. Frequency: Daily. Amount used: LIQUOR- 2 PINTS, BEER- 2 SIX PACK. Age of first use: 3. Date of Last Use: 12/19/17. Heroin. Route: Inhalation. Frequency: Daily. Amount used: 9 BAGS. Age of first use: 20. Date of Last Use : 12/19/17 Medical History: COPD,diabetes mellitus and a history of herniorraphy. Psychiatric History: Patient reports that he was diagnosed with Schizophrenia.He admits to a history of multiple psychiatric hospitalizations ( [facility]).Mr Madden indicates that he has stopped taking his medications for more than three months.NO show at the [facility]PD clinic " for some time." Prescibed a regimen of seroquel + trilafon (doses not recalled) .Patient declines to discuss a personal history of suicide attempts. Physical/Sexual Abuse/Trauma History: Patient denies. Additional Comment: Urine Drug Screen Results: OPI-Opiates, TCA-Tricyclic Antidepressant.Noted. Mental Status Exam - Mental Status Exam Alert and Oriented to: Time, Place, Person Cognitive Function: Good Patient Appearance: Well Groomed Mood: Angry, Anxious, Irritable Affect: Mood Congruent Patient Behavior: Fatigued, Cooperative Speech Pattern: Clear Voice Loudness: Normal Thought Process: Goal Oriented Thought Disorder: Not Present Hallucinations: Auditory (hears " good and bad voices " : voices praising him and other voices berating him and telling him to hurt self) Suicidal Ideation: Denies (" I don't want to .I have no intention to hurt myself.I hear those voices all the time,for years.I am not going to listen to them ") Homicidal Ideation: Denies Insight/Judgement: Fair Sleep: Poorly, Difficulty falling asleep Appetite: Good Gait/Station: Other (unteady gait due to orthopedic issues ;uses cane for ambulation) Psychiatric Findings - Problem List ([place] 1, 2,3) (1) Paranoid schizophrenia Current Visit: Yes Status: Chronic (2) Alcohol dependence with uncomplicated withdrawal Current Visit: Yes Status: Acute (3) Opioid dependence with withdrawal Current Visit: Yes Status: Acute (4) Nicotine dependence Current Visit: Yes Status: Acute Qualifiers: Nicotine product type: cigarettes Substance use status: uncomplicated Qualified Code(s): F17.210 - Nicotine dependence, cigarettes, uncomplicated (5) Insomnia Current Visit: Yes Status: Acute - Initial Treatment Plan Initial Treatment Plan: Constant Observation (1:1) for safety and unpredictable behavior.Psychoeducation and support.Detoxification in progress.Medications : seroquel 25 mg po STAT + seroquel 50 mg po hs + trilafon 2 mg po daily.Will titrate.Patient will be re-evaluated in the morning.Side effects/benefits of both drugs were discussed with the patient.Mr Madden agrees with this careplan.Observation.Falls precautions.
--- NOTE | 2017-12-20 16:26 | EKG ---
Test Reason : Blood Pressure : / mmHG Vent. Rate : 106 BPM Atrial Rate : 106 BPM P-R Int : 150 ms QRS Dur : 090 ms QT Int : 328 ms P-R-T Axes : 000 050 047 degrees QTc Int : 435 ms ATRIAL TACHYCARDIA Confirmed by MD AVELINO, ROGERS ([id number]) on 12/20/2017 4:26:22 PM Referred By: Confirmed By:ROGERS YOU MD
[2017-12-20] MEDS ORDERED: QUEtiapine FUMARATE 25 MG TABLET (FP) PO ONE (18:30)
[2017-12-20] MEDS: THIAMINE HCL 100 MG TABLET (FP) PO SCH (22:56)
[2017-12-20] MEDS: MELATONIN 5 MG TABLETS PO PRN (22:56)
[2017-12-21] MEDS: ACETAMINOPHEN 325 MG TABLET (FP) PO PRN (05:24)
[2017-12-21] MEDS: chlordiazePOXIDE HCL 25 MG CAPSULE PO SCH ×3 (05:24→18:10)
[2017-12-21] MEDS: NICOTINE 21 MG/24 HOURS TOPICAL PATCH TD SCH (09:41)
[2017-12-21] MEDS: PRENATAL VITAMINS W/ FOLIC ACID TABLET (FP) PO SCH (09:43)
[2017-12-21] MEDS: IBUPROFEN 400 MG TABLET (FP) PO PRN (09:44)
--- NOTE | 2017-12-21 09:54 | PN ---
Psychiatric Progress Note Vital Signs: Vital Signs Period Temp Pulse Resp BP Sys/Gamino Pulse Ox Last 24 Hr 96.1 F-97.9 F 83-109 18-20 97-128/63-76 Date of Session: 12/21/17 Chief Complaint:: " I don't hear voices anymore.I feel much better.I slept well last night." HPI: Day 3 of detoxification.Patient was placed under constant observation in response to complaint of auditory hallucinations and agitation.Mr Madden is diagnosed with paranoid schizophrenia and,according to his own account, he has not taken his antipsychotic medications for several months (more than four months). ROS: Patient is alert and fully oriented.Ambulatory (unsteady gait).No somatic complaints offered. Current Medications: Active Medications Generic Name Dose Route Start Last Admin Trade Name Freq PRN Reason Stop Dose Admin Acetaminophen 650 mg 12/19/17 17:20 12/21/17 05:24 Tylenol - PO 650 mg Q4H PRN Administration FEVER Al Hydroxide/Mg Hydroxide 30 ml 12/19/17 17:20 Mylanta Oral Suspension - PO Q6H PRN DYSPEPSIA Chlordiazepoxide HCl 25 mg 12/20/17 23:00 12/21/17 05:24 Librium - PO 12/21/17 17:01 25 mg [id number] CARTER Administration Chlordiazepoxide HCl 15 mg 12/21/17 23:00 Librium - PO 12/22/17 17:01 [id number] CARTER Chlordiazepoxide HCl 10 mg 12/22/17 23:00 Librium - PO 12/23/17 17:01 [id number] CARTER Chlordiazepoxide HCl 25 mg 12/19/17 17:25 Librium - PO 12/22/17 17:25 Q4H PRN WITHDRAWAL(CONT SUBST) Cyclobenzaprine HCl 10 mg 12/21/17 07:13 Flexeril - PO TID PRN MUSCLE SPASMS Eucalyptus/Menthol/Phenol/Sorbitol 1 each 12/19/17 17:20 Cepastat Lozenge - MM Q4H PRN SORE THROAT Guaifenesin 10 ml 12/19/17 17:20 Robitussin Dm - PO Q6H PRN COUGH Hydroxyzine Pamoate 50 mg 12/19/17 17:20 Vistaril - PO Q4H PRN AGITATION Ibuprofen 400 mg 12/19/17 17:20 12/21/17 09:44 Motrin - PO 400 mg Q6H PRN Administration PAIN LEVEL 4-6 Loperamide HCl 4 mg 12/19/17 17:20 Imodium - PO Q6H PRN DIARRHEA Magnesium Citrate 300 ml 12/19/17 17:20 Citroma - PO Q48H PRN CONSTIPATION Magnesium Hydroxide 30 ml 12/19/17 17:20 Milk Of Magnesia - PO DAILY PRN CONSTIPATION Melatonin 5 mg 12/19/17 22:00 12/20/17 22:56 Melatonin PO 5 mg HS PRN Administration INSOMNIA Methadone HCl 15 mg 12/21/17 10:00 12/21/17 09:43 Dolophine - PO 12/22/17 10:01 15 mg DAILY CARTER Administration Methadone HCl 5 mg 12/24/17 06:00 Dolophine - PO 12/24/17 06:01 DAILY@0600 CARTER Methadone HCl 10 mg 12/23/17 10:00 Dolophine - PO 12/23/17 10:01 DAILY CARTER Nicotine 21 mg 12/20/17 10:00 12/21/17 09:41 Nicoderm Patch - TD Not Given DAILY CARTER Nicotine Polacrilex 2 mg 12/19/17 17:20 Nicorette Gum - BC Q2H PRN NICOTINE REPLACEMENT RX Multivit/Folic Acid/Iron 1 tab 12/20/17 10:00 12/21/17 09:43 Vitamins (Sjr) - PO 1 tab DAILY CARTER Administration Pseudoephedrine/Triprolidine 1 combo 12/19/17 17:20 Actifed - PO TID PRN NASAL CONGESTION Thiamine HCl 100 mg 12/19/17 22:00 12/20/17 22:56 Vitamin B1 - PO 100 mg HS CARTER Administration Medication(s) Change(s): Added to the regimen : Trilafon 2 mg po bid + seroquel 25 mg po hs.Side effects/benefits are discussed with the patient.Mr Madden agrees to this plan of care. Current Side Effect: No Lab tests ordered: No Lab tests reviewed: Yes Provider note:: Patient is re-evaluated.Mr Madden reports that he slept well overnight.Feels rested and motivated for continuation of treatment.Eager to resume trilafon and seroquel.Patient is noted as well groomed,calm,pleasant on approach and conversant." I don't see why somebody should be watching me ; I am not causing any trouble around here ; I am a human being and I need my privacy like anybody else ; I have not heard any voices since last night." Patient denies having suicidal or homicidal thoughts.He verbalizes the wish to complete detox and transition to rehabilitation (either at [facility] or [facility]) .Adherence to treatment is reported as adequate.No occurrence of behavioral issues.Patient is cooperative with staff and shows no difficulty to follow redirections.Eats well.Maintains decent level of personal hygiene.Mental status has improved.No hallucinations reported at time of this examination.Stable hospital course.Constant observation is discontinued.Downgraded to frequent rounds (falls precautions).Discussed with the Multidisciplinary team.Will follow. Total face to face time:: 35 Mental Status Exam - Mental Status Exam Alert and Oriented to: Time, Place, Person Cognitive Function: Good Patient Appearance: Well Groomed Mood: Apprehensive, Hopeful Affect: Mood Congruent Patient Behavior: Appropriate (friendly with this conventional underwriter), Cooperative Speech Pattern: Clear, Appropriate Voice Loudness: Normal Thought Process: Goal Oriented Thought Disorder: Not Present Hallucinations: Denies Suicidal Ideation: Denies Homicidal Ideation: Denies Insight/Judgement: Fair Sleep: Well Appetite: Good Muscle strength/Tone: Normal Gait/Station: Other (ambulates with a cane) Psychiatric Treatment Plan - Problem List (1) Paranoid schizophrenia Comment: . (2) Alcohol dependence with uncomplicated withdrawal Comment: . (3) Opioid dependence with withdrawal Comment: . (4) Nicotine dependence Qualifiers: Nicotine product type: cigarettes Substance use status: uncomplicated Qualified Code(s): F17.210 - Nicotine dependence, cigarettes, uncomplicated Comment: . (5) Insomnia Qualifiers: Insomnia type: unspecified Qualified Code(s): G47.00 - Insomnia, unspecified Comment: .
[2017-12-21] MEDS ORDERED: METHADONE HCL 5 MG TABLET (FOR DETOX USE ONLY) PO SCH (10:00)
[2017-12-21] MEDS: PERPHENAZINE 2 MG TABLET PO SCH ×2 (12:51→22:25)
--- NOTE | 2017-12-21 13:15 | PN ---
S CIWA - CIWA Score Nausea/Vomitin-No Nausea/No Vomiting Muscle Tremors: 4-Moderate,w/Arms Extend Anxiety: 4-Mod. Anxious/Guarded Agitation: 4-Moderately Restless Paroxysmal Sweats: 1-Minimal Palms Moist Orientation: 0-Oriented Tacttile Disturbances: 0-None Auditory Disturbances: 0-None Visual Disturbances: 0-None Headache: 0-None Present CIWA-Ar Total Score: 13 BHS COWS - Scale Resting Pulse: 1= ID [id number] Sweatin= Chills/Flushing Restless Observation: 3= Extraneous Movement Pupil Size: 0= Normal to Room Light Bone or Joint Aches: 4=Acute Joint/Muscle Pain Runny Nose/ Eye Tearin= None GI Upset > 30mins: 0= None Tremor Observation of Outstretched Hands: 1= Tremor [place], Not Seen Yawning Observation: 0= None Anxiety or Irritability: 2=Irritable/Anxious Goose Flesh Skin: 0=Smooth Skin COWS Score: 12 BHS Progress Note (SOAP) Subjective: ANXIETY,SLIGHT IRRITABILITY,BACK PAIN. ALERT O X 3. DENIES S/I. PT WAS SEEN BY PSYCH THIS MORNING--(SEE PSYCH NOTES). DISCUSSED PAIN RELIEF WITH PATIENT DURING ROUNDS. AGREES TO ANALGESIC BALM AND MOTRIN FOR NOW. Objective: 12/21/17 13:14 Vital Signs Temperature 97.9 F 12/21/17 09:52 Pulse Rate 87 12/21/17 09:52 Respiratory Rate 20 12/21/17 09:52 Blood Pressure 117/72 12/21/17 09:52 O2 Sat by Pulse Oximetry (%) Laboratory Tests 12/19/17 12/19/17 12/20/17 16:31 18:34 05:42 WBC RBC Hgb Hct MCV MCH MCHC RDW Plt Count MPV Sickle Cell Screen Sodium Potassium Chloride Carbon Dioxide Anion Gap BUN Creatinine Creat Clearance w eGFR POC Glucometer 123 122 Random Glucose Calcium Total Bilirubin AST ALT Alkaline Phosphatase Total Protein Albumin Urine Color Ltyellow Urine Appearance Clear Urine pH 5.0 Ur Specific [place] 1.008 Urine Protein Negative Urine Glucose (UA) Negative Urine Ketones Negative Urine Blood Negative Urine Nitrite Negative Urine Bilirubin Negative Urine Urobilinogen Negative Ur Leukocyte Esterase Negative RPR Titer HIV 1&2 Antibody Screen HIV P24 Antigen 12/20/17 12/20/17 12/20/17 06:00 06:00 06:00 WBC 7.3 RBC 3.90 L Hgb 13.9 Hct 42.0 MCV 107.5 H MCH 35.7 H MCHC 33.2 RDW 17.4 H Plt Count 251 D MPV 9.5 Sickle Cell Screen Positive Sodium 136 Potassium 5.1 Chloride 98 D Carbon Dioxide 29 Anion Gap 9 BUN 13 D Creatinine 1.1 Creat Clearance w eGFR > 60 POC Glucometer Random Glucose 105 Calcium 9.0 Total Bilirubin 0.4 D AST 18 ALT 13 D Alkaline Phosphatase 113 D Total Protein 7.9 Albumin 4.1 Urine Color Urine Appearance Urine pH Ur Specific [place] Urine Protein Urine Glucose (UA) Urine Ketones Urine Blood Urine Nitrite Urine Bilirubin Urine Urobilinogen Ur Leukocyte Esterase RPR Titer Nonreactive HIV 1&2 Antibody Screen HIV P24 Antigen 12/20/17 12/20/17 12/21/17 06:00 16:34 05:25 WBC RBC Hgb Hct MCV MCH MCHC RDW Plt Count MPV Sickle Cell Screen Sodium Potassium Chloride Carbon Dioxide Anion Gap BUN Creatinine Creat Clearance w eGFR POC Glucometer 158 121 Random Glucose Calcium Total Bilirubin AST ALT Alkaline Phosphatase Total Protein Albumin Urine Color Urine Appearance Urine pH Ur Specific [place] Urine Protein Urine Glucose (UA) Urine Ketones Urine Blood Urine Nitrite Urine Bilirubin Urine Urobilinogen Ur Leukocyte Esterase RPR Titer HIV 1&2 Antibody Screen Negative HIV P24 Antigen Negative Assessment: 12/21/17 13:14 WITHDRAWAL SX Plan: CONTINUE DETOX ANALGESIC BALM APPLY TO AFFECTED AREAS NEEDED. CONTINUE MOTRIN DIRECTED.
[2017-12-21] MEDS: METHYL SALICYLATE/MENTHOL OINT 30 GM TUBE TP SCH ×2 (14:41→22:25)
[2017-12-21] MEDS: hydrOXYzine PAMOATE 50 MG CAPSULE (FP) PO PRN (18:10)
[2017-12-21] MEDS ORDERED: METHYL SALICYLATE/MENTHOL OINT 30 GM TUBE TP SCH (22:00)
[2017-12-21] MEDS: THIAMINE HCL 100 MG TABLET (FP) PO SCH (22:25)
[2017-12-21] MEDS: chlordiazePOXIDE 5 MG CAPSULE PO SCH (22:26)
[2017-12-22] MEDS: CYCLOBENZAPRINE HCL 10 MG TABLET (FP) PO PRN ×2 (00:43→10:22)
[2017-12-22] MEDS: MELATONIN 5 MG TABLETS PO PRN ×2 (00:43→22:14)
[2017-12-22] MEDS: IBUPROFEN 400 MG TABLET (FP) PO PRN ×2 (05:27→13:10)
[2017-12-22] MEDS: chlordiazePOXIDE 5 MG CAPSULE PO SCH ×3 (05:28→17:29)
[2017-12-22] MEDS ORDERED: METHADONE HCL 10 MG TABLET (FOR DETOX USE ONLY) PO SCH (10:00)
[2017-12-22] MEDS: METHYL SALICYLATE/MENTHOL OINT 30 GM TUBE TP SCH ×2 (10:19→23:37)
[2017-12-22] MEDS: NICOTINE 21 MG/24 HOURS TOPICAL PATCH TD SCH (10:20)
[2017-12-22] MEDS: PRENATAL VITAMINS W/ FOLIC ACID TABLET (FP) PO SCH (10:20)
[2017-12-22] MEDS: PERPHENAZINE 2 MG TABLET PO SCH ×2 (10:20→22:14)
--- NOTE | 2017-12-22 13:59 | PN ---
[facility] Progress Note (SOAP) Subjective: ALERT O X 3. OOB IN NAD. OOB WITH CANE AMBULATING WITH STEADY GAIT. PT [facility]. Objective: 12/22/17 13:58 Vital Signs Temperature 98.4 F 12/22/17 13:43 Pulse Rate 89 12/22/17 13:43 Respiratory Rate 16 12/22/17 13:43 Blood Pressure 119/71 12/22/17 13:43 O2 Sat by Pulse Oximetry (%) Laboratory Last Values WBC 7.3 K/mm3 (4.0-10.0) 12/20/17 06:00 RBC 3.90 M/mm3 (4.00-5.60) L 12/20/17 06:00 Hgb 13.9 GM/dL (11.7-16.9) 12/20/17 06:00 Hct 42.0 % (35.4-49) 12/20/17 06:00 MCV 107.5 fl (80-96) H 12/20/17 06:00 MCH 35.7 pg (25.7-33.7) H 12/20/17 06:00 MCHC 33.2 g/dl (32.0-35.9) 12/20/17 06:00 RDW 17.4 % (11.9-15.9) H 12/20/17 06:00 Plt Count 251 K/MM3 (134-434) D 12/20/17 06:00 MPV 9.5 fl (7.5-11.1) 12/20/17 06:00 Sickle Cell Screen Positive (NEGATIVE) 12/20/17 06:00 Sodium 136 mmol/L (136-145) 12/20/17 06:00 Potassium 5.1 mmol/L (3.5-5.1) 12/20/17 06:00 Chloride 98 mmol/L (98-107) D 12/20/17 06:00 Carbon Dioxide 29 mmol/L (21-32) 12/20/17 06:00 Anion Gap 9 (8-16) 12/20/17 06:00 BUN 13 mg/dL (7-18) D 12/20/17 06:00 Creatinine 1.1 mg/dL (0.7-1.3) 12/20/17 06:00 Creat Clearance w eGFR > 60 (>60) 12/20/17 06:00 POC Glucometer 190 UNITS (80-120) 12/22/17 05:26 Random Glucose 105 mg/dL (74-106) 12/20/17 06:00 Calcium 9.0 mg/dL (8.5-10.1) 12/20/17 06:00 Total Bilirubin 0.4 mg/dL (0.2-1.0) D 12/20/17 06:00 AST 18 U/L (15-37) 12/20/17 06:00 ALT 13 U/L (12-78) D 12/20/17 06:00 Alkaline Phosphatase 113 U/L (45-117) D 12/20/17 06:00 Total Protein 7.9 g/dl (6.4-8.2) 12/20/17 06:00 Albumin 4.1 g/dl (3.4-5.0) 12/20/17 06:00 Urine Color Ltyellow 12/19/17 18:34 Urine Appearance Clear 12/19/17 18:34 Urine pH 5.0 (5.0-8.0) 12/19/17 18:34 Ur Specific [place] 1.008 (1.001-1.035) 12/19/17 18:34 Urine Protein Negative (NEGATIVE) 12/19/17 18:34 Urine Glucose (UA) Negative (NEGATIVE) 12/19/17 18:34 Urine Ketones Negative (NEGATIVE) 12/19/17 18:34 Urine Blood Negative (NEGATIVE) 12/19/17 18:34 Urine Nitrite Negative (NEGATIVE) 12/19/17 18:34 Urine Bilirubin Negative (<2.0 mg/dL) 12/19/17 18:34 Urine Urobilinogen Negative mg/dL (0.2-1.0) 12/19/17 18:34 Ur Leukocyte Esterase Negative (NEGATIVE) 12/19/17 18:34 RPR Titer Nonreactive (NONREACTIVE) 12/20/17 06:00 HIV 1&2 Antibody Screen Negative 12/20/17 06:00 HIV P24 Antigen Negative 12/20/17 06:00 Assessment: 12/22/17 13:58 DECREASED WITHDRAWAL SX Plan: CONTINUE DETOX DIRECTED
--- NOTE | 2017-12-22 17:12 | PN ---
[facility] Progress Note Note: called by nurse glucose 363 started on metformin in AM, one dose now
[2017-12-22] MEDS ORDERED: metFORMIN HCL 500 MG TABLET (FP) PO ONE (17:30)
[2017-12-22] MEDS ORDERED: valACYclovir HCL 1000 MG TABLET PO ONE (17:45)
[2017-12-22] MEDS: THIAMINE HCL 100 MG TABLET (FP) PO SCH (22:13)
[2017-12-22] MEDS: chlordiazePOXIDE HCL 10 MG CAPSULE PO SCH (22:13)
[2017-12-23 00:10] LABS: HGB SOLUBILITY Positive (Negative); Hgb A 56.2 % (96.4-98.8); Hgb C 0 % (0.0); Hgb F 1.5 % (0.0-2.0); Hgb S 38.4 % (0.0)
[2017-12-23] MEDS: hydrOXYzine PAMOATE 50 MG CAPSULE (FP) PO PRN (03:09)
[2017-12-23] MEDS: CYCLOBENZAPRINE HCL 10 MG TABLET (FP) PO PRN (03:09)
[2017-12-23] MEDS ORDERED: METHADONE HCL 5 MG TABLET (FOR DETOX USE ONLY) PO SCH (06:00)
[2017-12-23] MEDS: chlordiazePOXIDE HCL 10 MG CAPSULE PO SCH (06:15)
[2017-12-23 06:16] VITALS: BP 124/83; PULSE 104; TEMP 96.7
[2017-12-23] MEDS ORDERED: metFORMIN HCL 500 MG TABLET (FP) PO SCH (07:00)
[2017-12-23] MEDS ORDERED: METHADONE HCL 10 MG TABLET (FOR DETOX USE ONLY) PO SCH (10:00)
--- NOTE | 2017-12-23 17:05 | DS ---
[facility] Detox Discharge Summary Admission Date: 12/19/17 Discharge Date: 12/23/17 - History Present History: Alcohol Dependence, Opioid Dependence Additional Comments: PATIENT GOING TO [facility] ([facility]) FOR AFTERCARE. PATIENT WAS DISCHARGED FROM DETOX UNIT IN STABLE MEDICAL CONDITION. Pertinent Past History: HTN, COPD, Depression, Type II DM, Paranoid Schizophrenia, Insomnia, Nicotine Dependence. - Physical Exam Results Vital Signs: Vital Signs Temperature 96.7 F L 12/23/17 06:15 Pulse Rate 104 H 12/23/17 06:15 Respiratory Rate 20 12/23/17 06:15 Blood Pressure 124/83 12/23/17 06:15 O2 Sat by Pulse Oximetry (%) Pertinent Admission Physical Exam Findings: WITHDRAWAL SYMPTOMS. Laboratory Tests 12/19/17 12/19/17 12/20/17 16:31 18:34 05:42 WBC RBC Hgb Hct MCV MCH MCHC RDW Plt Count MPV Sickle Cell Screen Hemoglobin A Hemoglobin A2 Hemoglobin C Hemoglobin S Variant Hemoglobin Hemoglobin Interpret Maternal Rh Hemoglobin Solubility Sodium Potassium Chloride Carbon Dioxide Anion Gap BUN Creatinine Creat Clearance w eGFR POC Glucometer 123 122 Random Glucose Calcium Total Bilirubin AST ALT Alkaline Phosphatase Total Protein Albumin Urine Color Ltyellow Urine Appearance Clear Urine pH 5.0 Ur Specific [place] 1.008 Urine Protein Negative Urine Glucose (UA) Negative Urine Ketones Negative Urine Blood Negative Urine Nitrite Negative Urine Bilirubin Negative Urine Urobilinogen Negative Ur Leukocyte Esterase Negative RPR Titer HIV 1&2 Antibody Screen HIV P24 Antigen 12/20/17 12/20/17 12/20/17 06:00 06:00 06:00 WBC 7.3 RBC 3.90 L Hgb 13.9 Hct 42.0 MCV 107.5 H MCH 35.7 H MCHC 33.2 RDW 17.4 H Plt Count 251 D MPV 9.5 Sickle Cell Screen Positive Hemoglobin A Hemoglobin A2 Hemoglobin C Hemoglobin S Variant Hemoglobin Hemoglobin Interpret Maternal Rh Hemoglobin Solubility Sodium 136 Potassium 5.1 Chloride 98 D Carbon Dioxide 29 Anion Gap 9 BUN 13 D Creatinine 1.1 Creat Clearance w eGFR > 60 POC Glucometer Random Glucose 105 Calcium 9.0 Total Bilirubin 0.4 D AST 18 ALT 13 D Alkaline Phosphatase 113 D Total Protein 7.9 Albumin 4.1 Urine Color Urine Appearance Urine pH Ur Specific [place] Urine Protein Urine Glucose (UA) Urine Ketones Urine Blood Urine Nitrite Urine Bilirubin Urine Urobilinogen Ur Leukocyte Esterase RPR Titer Nonreactive HIV 1&2 Antibody Screen HIV P24 Antigen 12/20/17 12/20/17 12/20/17 06:00 06:00 16:34 WBC RBC Hgb Hct MCV MCH MCHC RDW Plt Count MPV Sickle Cell Screen Hemoglobin A 56.2 L Hemoglobin A2 3.9 H Hemoglobin C 0 Hemoglobin S 38.4 H Variant Hemoglobin TNP Hemoglobin Interpret Maternal Rh 1.5 Hemoglobin Solubility Positive H Sodium Potassium Chloride Carbon Dioxide Anion Gap BUN Creatinine Creat Clearance w eGFR POC Glucometer 158 Random Glucose Calcium Total Bilirubin AST ALT Alkaline Phosphatase Total Protein Albumin Urine Color Urine Appearance Urine pH Ur Specific [place] Urine Protein Urine Glucose (UA) Urine Ketones Urine Blood Urine Nitrite Urine Bilirubin Urine Urobilinogen Ur Leukocyte Esterase RPR Titer HIV 1&2 Antibody Screen Negative HIV P24 Antigen Negative 12/21/17 12/21/17 12/22/17 05:25 16:31 05:26 WBC RBC Hgb Hct MCV MCH MCHC RDW Plt Count MPV Sickle Cell Screen Hemoglobin A Hemoglobin A2 Hemoglobin C Hemoglobin S Variant Hemoglobin Hemoglobin Interpret Maternal Rh Hemoglobin Solubility Sodium Potassium Chloride Carbon Dioxide Anion Gap BUN Creatinine Creat Clearance w eGFR POC Glucometer 121 165 190 Random Glucose Calcium Total Bilirubin AST ALT Alkaline Phosphatase Total Protein Albumin Urine Color Urine Appearance Urine pH Ur Specific [place] Urine Protein Urine Glucose (UA) Urine Ketones Urine Blood Urine Nitrite Urine Bilirubin Urine Urobilinogen Ur Leukocyte Esterase RPR Titer HIV 1&2 Antibody Screen HIV P24 Antigen 12/22/17 12/23/17 16:27 06:13 WBC RBC Hgb Hct MCV MCH MCHC RDW Plt Count MPV Sickle Cell Screen Hemoglobin A Hemoglobin A2 Hemoglobin C Hemoglobin S Variant Hemoglobin Hemoglobin Interpret Maternal Rh Hemoglobin Solubility Sodium Potassium Chloride Carbon Dioxide Anion Gap BUN Creatinine Creat Clearance w eGFR POC Glucometer 363 159 Random Glucose Calcium Total Bilirubin AST ALT Alkaline Phosphatase Total Protein Albumin Urine Color Urine Appearance Urine pH Ur Specific [place] Urine Protein Urine Glucose (UA) Urine Ketones Urine Blood Urine Nitrite Urine Bilirubin Urine Urobilinogen Ur Leukocyte Esterase RPR Titer HIV 1&2 Antibody Screen HIV P24 Antigen LABS NOTED. - Treatment Hospital Course: Detox Protocol Followed, Detoxed Safely, Responded well, Discharged Condition Good, Rehab Referral Accepted Patient has Accepted a Rehab Referral to: [facility] ([facility] - Medication Discharge Medications: Ambulatory Orders Benztropine Mesylate [Cogentin -] 1 mg PO DAILY #30 tablet 12/24/16 Folic Acid - 1 mg PO DAILY #30 tablet 12/24/16 Perphenazine [Trilafon -] 4 mg PO BID #60 tablet 12/24/16 Quetiapine Fumarate [Seroquel] 100 mg PO BID #60 tablet 12/24/16 Thiamine HCl [Vitamin B1 -] 100 mg PO DAILY #30 tablet 12/24/16 Perphenazine [Trilafon -] 4 mg PO BID #60 tablet 12/23/17 - Diagnosis (1) Alcohol dependence with uncomplicated withdrawal Status: Acute (2) Depressed affect Status: Acute (3) Opioid dependence with withdrawal Status: Acute (4) Diabetes 1.5, managed as type 2 Status: Chronic (5) Nicotine dependence Status: Acute Qualifiers: Nicotine product type: cigarettes Substance use status: uncomplicated Qualified Code(s): F17.210 - Nicotine dependence, cigarettes, uncomplicated (6) Paranoid schizophrenia Status: Chronic (7) Insomnia Status: Acute Qualifiers: Insomnia type: unspecified Qualified Code(s): G47.00 - Insomnia, unspecified - AMA Did Patient Leave Against Medical Advice: No
[2017-12-24] MEDS ORDERED: METHADONE HCL 5 MG TABLET (FOR DETOX USE ONLY) PO SCH (06:00)
== END 2017-12-23 06:30 | disposition home or self-care (01) | DRG 897 ==
LOC: YASAS 11:47 → Y3N 17:24
PROVIDERS: ADMIT Internal Medicine; ATTEND Internal Medicine
PROC: HZ2ZZZZ Detoxification Services for Substance Abuse Treatment (ICD-10-PCS; principal; 2017-12-19)
DX: F11.23 Opioid dependence with withdrawal (principal); F20.0 Paranoid schizophrenia; F10.230 Alcohol dependence with withdrawal, uncomplicated; F17.210 Nicotine dependence, cigarettes, uncomplicated; F32.9 Major depressive disorder, single episode, unspecified; I10 Essential (primary) hypertension; E11.9 Type 2 diabetes mellitus without complications; J44.9 Chronic obstructive pulmonary disease, unspecified; G47.00 Insomnia, unspecified; R45.89 Other symptoms and signs involving emotional state; M54.5 Low back pain
CPT/HCPCS: 36415; 80053; 81003; 82962; 83021; 85027; 85660; 86593; 87389; 93005; 93010